=== PATIENT | male | born 1940 | race Caucasian/White ===

== ENCOUNTER 2023-07-11 12:58 | Inpatient (IN) | payer MEDICARE, SELFPAY ==
[2023-07-11] VITALS (56 sets, daily range): BP systolic 104–148; BP diastolic 62–92; PULSE 62–155; RESP 9–44; TEMP 36.3; O2SAT 85–100; BMI 20.2
--- NOTE | 2023-07-11 14:32 | CT_ITS ---
WS: [id number] CT HEAD NONCONTRAST HISTORY: Encephalopathy, altered mental status TECHNIQUE: Contiguous axial imaging performed through the brain in 2.5 mm imaging. Bone and soft tiss ue windows. Sagittal and coronal reformats reviewed. All CT scans at [facility] use at least one of these dose optimization techniques: automated exposure control; mA and/or kV adjustment per pa tient size (includes targeted exams where dose is matched to clinical indication); or iterative recon struction. DLP: 1113.38 mGy.cm COMPARISON: None available. No acute intracranial hemorrhage, midline shift or mass effect. Moderate bilateral atrophy and volume loss. Remote infarct RIGHT occipital lobe. Additional prior inf arct in the posterior LEFT frontal lobe towards the vertex. Tiny lacunar infarct in the LEFT harpal. Ad ditional tiny lacunar infarct LEFT caudate body. Ventricles: Normal size with no hydrocephalus. No inferior displacement of the cerebellar tonsils. Paranasal sinuses: As visualized are clear. Mastoid air cells: Cerumen in the external auditory canals. Calvarium and scalp: Skull is intact with no soft tissue edema or swelling. CT/CT head wo con* [id number] IMPRESSION: 1. No acute intracranial hemorrhage or edema. 2. Moderate bilateral volume loss and cerebral atrophy. 3. Remote infarcts in the RIGHT occipital and posterior LEFT frontal lobe towa rds the vertex.
--- NOTE | 2023-07-11 14:32 | XRR_ITS ---
PROCEDURE INFORMATION: Exam: XR Chest Exam date and time: 07/11/2023 2:51 PM Age: 83 years old Clinical indication: Other: Weakness TECHNIQUE: Imaging protocol: Radiologic exam of the chest. Views: 1 view. COMPARISON: No relevant prior studies available. FINDINGS: Lungs: No focal consolidation. Indeterminate opacities projecting over the mid left lung. Pleural spaces: No evidence of pneumothorax. Small right-sided pleural effusion. Possible trace-small left-sided pleural effusion. Heart/Mediastinum: Cardiomediastinal silhouette is within normal limits. Aortic valve replacement noted. Bones/joints: No evidence of acute osseous abnormality. XR/XR chest 1V portable [id number] IMPRESSION: 1. Small right-sided pleural effusion. 2. Indeterminate opacities projecting over the mid left lung. If there is ongoing clinical concern, consider correlation with CT.
--- NOTE | 2023-07-11 14:33 | ECG_ITS ---
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 Measurements Intervals [place] Rate: 89 P: 0 PA: 0 QRS: -5 QRSD: 104 T: 136 QT: 386 QTc: 472 Interpretive Statements ATRIAL FIBRILLATION PROBABLE SEPTAL MYOCARDIAL INFARCTION , OF INDETERMINATE AGE [35 ms Q WAVE IN V1/V2] No previous ECG available for comparison Electronically Signed On 07-12-2023 0:24:45 CDT by Akshat Montero M.D. [email or web address]
[2023-07-11 14:46] LABS: Basophils % 0.3 %; Eosinophils % 0.3 %; Hematocrit 42.3 % (37-53); Lymphocytes # 1.5 10^3/uL (0.8-4.8); Lymphocytes % 14.7 %; Mean Corpuscular HGB Conc 31.4 g/dL (30-55); Mean Corpuscular Hemoglobin 28.8 pg (27-33); Mean Corpuscular Volume 91.6 fl (82-101); Mean Platelet Volume 10.7 fL (7.4-10.4); Monocytes # 0.8 10^3/uL (0.2-0.9); Monocytes % 7.7 %; Neutrophils # 7.72 10^3/uL (1.8-7.7); Neutrophils % 76.6 %; Nucleated Red Blood Cells % 0 %; Platelet Count 275 10^3/cmm (157-399); Red Blood Count 4.62 10^6/uL (3.85-5.65); Red Cell Distribution Width 14.6 % (12.1-15.1); White Blood Count 10.08 10^3/uL (3.29-11.43)
--- NOTE | 2023-07-11 14:56 | ED_ITS ---
HPI - Altered Mental Status 2 General: Chief Complaint: Altered Mental Status Stated Complaint: AMS Time Seen by Provider: 07/11/23 14:18 History of Present Illness: 83-year-old man with a history of atrial fibrillation on Eliquis, coronary artery disease on Plavix, hypertension on multiple medications, diabetes on metformin who presents to the emergency room with weakness and confusion. He had been living in snf (not assisted living). Son is not sure if anybody was helping take care of him and had gone to get him to have them come stay with him. He says when he picked him up he did not seem very confused and when they stopped he was able to use his walker to get around. At the time they got here he would barely transfer and has become somewhat agitated and confused. No focal motor deficits. When I ask him who his son is. He just simply states ugly . No known fevers. He had not had any vomiting. He reports no pain at this time. Review of Systems 2 Narrative: Constitutional symptoms: Negative except as documented in HPI. Skin symptoms: Negative except as documented in HPI. Eye symptoms: Negative except as documented in HPI. ENMT symptoms: Negative except as documented in HPI. Respiratory symptoms: Negative except as documented in HPI. Cardiovascular symptoms: Negative except as documented in HPI. Gastrointestinal symptoms: Negative except as documented in HPI. Genitourinary symptoms: Negative except as documented in HPI. Musculoskeletal symptoms: Negative except as documented in HPI. Neurologic symptoms: Negative except as documented in HPI. Psychiatric symptoms: Negative except as documented in HPI. Endocrine symptoms: Negative except as documented in HPI. Physical Exam 2 Narrative: General: Alert, no acute distress. Skin: Warm, dry. Head: Normocephalic, atraumatic. Neck: Supple, trachea midline. Eye: Extraocular movements are intact. Ears, nose, mouth and throat: mucosa moist. Cardiovascular: Regular, Normal peripheral perfusion. Respiratory: Lungs are clear to auscultation, respirations are non-labored, breath sounds are equal, Symmetrical chest wall expansion. Gastrointestinal: Soft, Nontender, Non distended, Normal bowel sounds. Musculoskeletal: Normal ROM, no deformity. Neurological: Alert but not oriented, No focal neurological deficit observed. Psychiatric: Patient seems confused/demented. Course 2 Vital Signs: Vital signs: Vital Signs Temperature 97.4 F L 07/11/23 12:59 Pulse Rate 92 07/11/23 19:00 Respiratory Rate 17 07/11/23 19:00 Blood Pressure 104/85 07/11/23 19:00 Pulse Oximetry 92 07/11/23 19:00 Oxygen Delivery Me thod Room Air 07/11/23 16:40 MDM - Altered Mental Status Medical Decision Making Medical decision making: Differential diagnosis including but not limited to and based on the above HPI, review of systems and physical exam: In this patient with altered mental status: Stroke. Hypoglycemia. Metabolic encephalopathy. Infections such as pneumonia, urinary tract infection, Covid-19, Influenza. Electrolyte abnormalities such as hypernatremia. Renal failure / uremia. Hepatic encephalopathy. Hypoxemia. Hypercapnic respiratory failure. Psychosis. Drug or alcohol intoxication. Medication overdose. Orders placed to evaluate differential diagnosis based on the above differential, HPI and physical exam Lab Review: Laboratory results were reviewed and interpreted by myself the emergency room physician. White count is 10. Hemoglobin is 13. He has renal insufficiency with a BUN of 45 and a creatinine of 1.9. I do not have any comparisons. Patient has a significant urinary tract infection. Troponin is 365 and repeat is 358. This may just be due to his renal failure. Potassium is borderline high at 5.2. Lactic acid is only 1.6. EKG: Time 1459 rate 89. Atrial fibrillation with controlled rate. No ST-T changes, no ectopy, This was reviewed and interpreted by myself the ER physician at 1500 Repeat EKG: Time 1628 rate 76. Atrial fibrillation with controlled rate, No ST- T changes, no ectopy, This was reviewed and interpreted by myself the ER physician at 1631. No changes from previous Repeat EKG: Time 9 rate 144 atrial fibrillation with rapid ventricular response, No ST-T changes, no ectopy, This was reviewed and interpreted by myself the ER physician at 2029. Patient has gone from A-fib with controlled rate A-fib with RVR. Chest x-ray: No acute process. No infiltrate. No pneumothorax. No cardiomegaly. This was reviewed and interpreted by myself the ER physician. CT head: No acute intracranial process. no intracranial hemorrhage, no evidence of infarct. no evidence of acute fracture.This was reviewed and interpreted by myself the ER physician. Prolonged emergency room stay: Patient has refused to give urine. Refused catheter. Urine was not posted till around 7 hours into the patient's stay. At that point decided that he likely was septic so second liter of fluid was given. Linezolid and meropenem were given. Had some concern initially about him having some heart failure side held off on a second liter of fluid. Also held on antibiotics without a source of infection. Particularly given that his lactic acid was only 1.6. Also a CT of the abdomen pelvis was requested to rule out obstructive uropathy which is also delayed admission somewhat. I reviewed the patient's medical record. I reviewed patient's medications on the son's phone. No records from here. Attempting to obtain records from whence he came CT of the chest abdomen pelvis: Chest shows mild interstitial pulmonary edema and bilateral pleural effusions. Pleural thickening. Atelectasis. No acute abnormalities in the abdomen particularly no renal stones or obstructive uropathy. Reexamination: Patient has become tachycardic after CT scan. He is A-fib with RVR. This was discussed with Dr. George. Consultation: I spoke with Dr. George. She recommended a CT of the abdomen pelvis to rule out obstructive uropathy. She agreed with broad-spectrum antibiotics. I have been giving fluids because I am quite concerned for sepsis, however he does have a history of heart issues and his proBNP is 14,000 today. However he appears dry on exam. 2 L of fluid being given Assessment and plan: Metabolic encephalopathy Urinary tract infection Sepsis Pleural effusions Renal failure Atrial fibrillation with rapid ventricular response -2L normal saline bolus. Fluid volumes based on ideal body weight. This was given over couple hours given that I am quite concerned for heart failure with this patient and his lactate was only 1.6. However given that he some tachycardia. Renal failure. Encephalopathy. Multiorgan failure I am treating this as presumed sepsis. -Broad-spectrum antibiotics were administered. Zyvox and cefepime -Sepsis quality measures. -Lactic acid with a reflex was ordered. -Blood cultures were ordered. -I discussed the patient with the hospitalist on-call who is admitting the patient. - Discussed findings and plan with patient. Answered any questions. - All laboratory values were reviewed and interpreted personally by myself, the ER physician - All imaging was reviewed and interpreted personally by myself, the ER physician. - Evaluation and treatment of this problem were appropriate in the emergency setting -I spent a total of >35 minutes of critical care time managing the patient, independent of any other practitioner. -The time involved in the performance of separately reportable procedures was not counted towards critical care time. Lab Data 07/11/23 14:32 07/11/23 14:32 Radiology Impressions Chest X-Ray 07/11/23 14:32 IMPRESSION: 1. Small right-sided pleural effusion. 2. Indeterminate opacities projecting over the mid left lung. If there is ongoing clinical concern, consider correlation with CT. Head CT 07/11/23 14:32 IMPRESSION: 1. No acute intracranial hemorrhage or edema. 2. Moderate bilateral volume loss and cerebral atrophy. 3. 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 Chest/Abdomen/Pelvis CT 07/11/23 19:50 IMPRESSION: 1. Mild interstitial pulmonary edema with bilateral pleural effusions. Consider correlation with pleural fluid analysis on the right to exclude infection/empyema as clinically warranted. 2. Pleural thickening and calcifications compatible with asbestos related lung disease. 3. Right basilar rounded atelectasis. Consider follow-up CT of the chest in 4-6 weeks to assess for resolution. IMPRESSION: 1. No evidence of acute abnormality in the abdomen or pelvis within limitations of a noncontrast exam. 2. Right renal parenchymal atrophy. No hydronephrosis of either kidney. Laboratory Results WBC 10.08 10^3/uL (3.29-11.43) 07/11/23 14:32 RBC 4.62 10^6/uL (3.85-5.65) 07/11/23 14:32 Hgb 13.30 g/dL (11.27-16.99) 07/11/23 14:32 Hct 42.3 % (37-53) 07/11/23 14:32 MCV 91.6 fl (82-101) 07/11/23 14:32 MCH 28.8 pg (27-33) 07/11/23 14:32 MCHC 31.4 g/dL (30-55) 07/11/23 14:32 RDW 14.6 % (12.1-15.1) 07/11/23 14:32 Plt Count 275 10^3/cmm (157-399) 07/11/23 14:32 MPV 10.7 fL (7.4-10.4) H 07/11/23 14:32 Neut % (Auto) 76.6 % 07/11/23 14:32 Lymph % (Auto) 14.7 % 07/11/23 14:32 [place] % (Auto) 7.7 % 07/11/23 14:32 Eos % (Auto) 0.3 % 07/11/23 14:32 Baso % (Auto) 0.3 % 07/11/23 14:32 Neut # (Auto) 7.72 10^3/uL (1.8-7.7) H 07/11/23 14:32 Lymph # (Auto) 1.5 10^3/uL (0.8-4.8) 07/11/23 14:32 [place] # (Auto) 0.8 10^3/uL (0.2-0.9) 07/11/23 14:32 Eos # (Auto) 0.0 10^3/uL (0.0-0.8) 07/11/23 14:32 Baso # (Auto) 0.0 10^3/uL (0.0-0.1) 07/11/23 14:32 Nucleated RBC % (auto) 0 % 07/11/23 14:32 Nucleated RBCs # 0.0 /100WBC 07/11/23 14:32 Sodium 142 mmol/L (136-145) 07/11/23 14:32 Potassium 5.2 mmol/L (3.5-5.1) H 07/11/23 14:32 Chloride 108 mmol/L (98-107) H 07/11/23 14:32 Carbon Dioxide 20 mmol/L (22-29) L 07/11/23 14:32 Anion Gap 19.2 (5-19) H 07/11/23 14:32 BUN 45 mg/dL (8-23) H 07/11/23 14:32 Creatinine 1.9 mg/dL (0.7-1.2) H 07/11/23 14:32 GFR Calculation Not Reportable 07/11/23 14:32 Glucose 182 mg/dL (65-115) H 07/11/23 14:32 POC Glucose 161 mg/dL (70-110) H 07/11/23 16:33 Calculated Osmolality 310 mOsm/kg (285-295) H 07/11/23 14:32 Lactic Acid 1.6 mmol/L (0.5-2.2) 07/11/23 14:32 Calcium 8.9 mg/dL (8.5-10.5) 07/11/23 14:32 Total Bilirubin 1.2 mg/dL (0.15-1.2) 07/11/23 14:32 AST 33 U/L (0-40) 07/11/23 14:32 ALT 17 U/L (0-41) 07/11/23 14:32 Alkaline Phosphatase 133 U/L (40-130) H 07/11/23 14:32 Troponin T Baseline 358 ng/L (0-15) H* 07/11/23 14:32 Troponin T 120 Minute 364.2 ng/L (0-15) H 07/11/23 16:16 Delta Troponin T 6.2 ABS# (0-10) 07/11/23 16:16 C-Reactive Protein 116.8 mg/L (0.0-4.9) H 07/11/23 14:32 NT-Pro-B Natriuret Pep 95255 pg/mL (0-450) H 07/11/23 14:32 Total Protein 6.4 g/dL (6.6-8.7) L 07/11/23 14:32 Albumin 3.5 g/dL (3.5-5.2) 07/11/23 14:32 Globulin 2.9 g/dL (1.3-4.6) 07/11/23 14:32 TSH 1.85 uIU/mL (0.27-4.20) 07/11/23 14:32 Urine Color Yellow (Yellow) 07/11/23 19:07 Urine Appearance Cloudy (CLEAR) A 07/11/23 19:07 Urine pH 6.5 (5-7) 07/11/23 19:07 Ur Specific [place] 1.015 (1.005-1.030) 07/11/23 19:07 Urine Protein 1+ (Negative) H 07/11/23 19:07 Urine Glucose (UA) Norm (Normal) 07/11/23 19:07 Urine Ketones Negative (Negative) 07/11/23 19:07 Urine Blood 2+ (Negative) H 07/11/23 19:07 Urine Nitrate Negative (Negative) 07/11/23 19:07 Urine Bilirubin 1+ (Negative) H 07/11/23 19:07 Urine Urobilinogen Norm mg/dL (Negative) 07/11/23 19:07 Ur Leukocyte Esterase 2+ (Negative) H 07/11/23 19:07 Urine RBC 5-10 /hpf (0-2) H 07/11/23 19:07 Urine WBC >100 /hpf (0-5) H 07/11/23 19:07 Ur Squamous Epith Cells None /hpf (0-5) 07/11/23 19:07 Amorphous Sediment Trace /hpf 07/11/23 19:07 Urine Bacteria 2+ /hpf (NONE) H 07/11/23 19:07 Urine Mucus None /hpf 07/11/23 19:07 Salicylates < 0.3 mg/dL (3-10) L 07/11/23 14:32 Urine Opiates Screen Negative ng/mL (Negative) 07/11/23 19:07 Acetaminophen < 5.0 ug/mL (10-30) L 07/11/23 14:32 Ur Barbiturates Screen Negative ng/mL (Negative) 07/11/23 19:07 Ur Phencyclidine Scrn Negative ng/mL (Negative) 07/11/23 19:07 Ur Amphetamines Screen Negative ng/mL (Negative) 07/11/23 19:07 U Benzodiazepines Scrn Negative ng/mL (Negative) 07/11/23 19:07 Urine Cocaine Screen Negative ng/mL (Negative) 07/11/23 19:07 U Marijuana (THC) Screen Negative ng/mL (Negative) 07/11/23 19:07 Ethyl Alcohol < 10 mg/dL (0-10) 07/11/23 14:32 All radiology interpretation(s) finalized by discharge Discharge Plan Discharge Admit Provider: Dahlia George Condition: Stable Coding Level of Care Code ED Workflow Developer for Eddie Rousseau
[2023-07-11 14:58] LABS: Lactic Sepsis W/Reflex 1.6 mmol/L (0.5-2.2)
[2023-07-11 15:06] LABS: Troponin(5th) Baseline 358 ng/L (0-15)
[2023-07-11 15:15] LABS: Alanine Aminotransferase 17 U/L (0-41); Albumin Level 3.5 g/dL (3.5-5.2); Alkaline Phosphatase 133 U/L (40-130); Blood Urea Nitrogen 45 mg/dL (8-23); C Reactive Protein 116.8 mg/L (0.0-4.9); Calcium 8.9 mg/dL (8.5-10.5); Carbon Dioxide 20 mmol/L (22-29); Chloride 108 mmol/L (98-107); Creatinine Clr Calc Pharmacy 29.2643; Globulin 2.9 g/dL (1.3-4.6); Glucose 182 mg/dL (65-115); NT Pro B Type Natriuretic Pept 14197 pg/mL (0-450); Osmolality Calculated 310 mOsm/kg (285-295); Sodium 142 mmol/L (136-145); Thyroid Stimulating Hormone 1.85 uIU/mL (0.27-4.20); Total Bilirubin 1.2 mg/dL (0.15-1.2); Total Protein 6.4 g/dL (6.6-8.7)
[2023-07-11 15:17] LABS: Acetaminophen < 5.0 ug/mL (10-30); Alcohol Level < 10 mg/dL (0-10); Anion Gap 19.2 (5-19); Aspartate Amino Transferase 33 U/L (0-40); Potassium 5.2 mmol/L (3.5-5.1); Salicylate < 0.3 mg/dL (3-10)
--- NOTE | 2023-07-11 16:33 | ECG_ITS ---
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 Measurements Intervals [place] Rate: 94 P: 0 TN: 0 QRS: -3 QRSD: 98 T: 68 QT: 380 QTc: 477 Interpretive Statements ATRIAL FIBRILLATION POSSIBLE SEPTAL MYOCARDIAL INFARCTION , OF INDETERMINATE AGE [30 ms Q WAVE IN V1/V2] Compared to ECG 07/11/2023 14:59:44 No significant changes Electronically Signed On 07-12-2023 0:34:29 CDT by Akshat Montero M.D. [id number]
[2023-07-11 16:36] LABS: Glucose Point of Care 161 mg/dL (70-110)
[2023-07-11 16:39] LABS: Troponin 5 2HR Delta 6.2 ABS# (0-10)
[2023-07-11] MEDS: sodium chloride 0.9% 1,000 ML 999 ML IV ×2 (16:40→19:56)
[2023-07-11 16:41] LABS: Troponin 5 2HR 364.2 ng/L (0-15)
[2023-07-11] MEDS: LORazepam 2 mg/mL INJ 10 mL MDV 1 MG IVP ×2 (18:54→21:06)
[2023-07-11 19:18] LABS: Specific Gravity, Urine 1.015 (1.005-1.030); Urine Appearance Cloudy (CLEAR); Urine Color Yellow (Yellow); pH Urine 6.5 (5-7)
[2023-07-11 19:19] LABS: Bilirubin Urine 1+ (Negative); Blood Urine 2+ (Negative); Glucose Urine UA Norm (Normal); Ketones Urine Negative (Negative); Leukocyte Esterase Urine 2+ (Negative); Nitrate Urine Negative (Negative); Protein Urine 1+ (Negative); Urobilinogen Urine Norm (Negative)
[2023-07-11 19:23] LABS: Add Urine Culture? Yes; Amorphous Sediment Urine TRACE /hpf; Amphetamines Screen Urine Negative (Negative); Bacteria Urine 2+ /hpf; Barbiturates Screen Urine Negative (Negative); Benzodiazepines Screen Urine Negative (Negative); Cocaine Screen Urine Negative (Negative); Opiate Screen Urine Negative (Negative); PCP Screen Urine Negative (Negative); THC Screen Urine Negative (Negative); WBC Urine >100 /hpf (0-5)
[2023-07-11] MEDS: linezolid premix 600 MG/300 ML PREMIX 300 MG IV (19:48)
--- NOTE | 2023-07-11 19:50 | CTR_ITS ---
PROCEDURE INFORMATION: Exam: CT Chest Without Contrast; Diagnostic Exam date and time: 07/11/2023 8:14 PM Age: 83 years old Clinical indication: Other: Renal failure; Additional info: Renal failure, R/O obstructive uropathy per hospitalist TECHNIQUE: Imaging protocol: Diagnostic computed tomography of the chest without contrast. Radiation optimization: All CT scans at this facility use at least one of these dose optimization techniques: automated exposure control; mA and/or kV adjustment per patient size (includes targeted exams where dose is matched to clinical indication); or iterative reconstruction. COMPARISON: CR XR chest 1V portable [id number] 07/11/2023 2:51 PM RADIATION DOSE METRICS: Total DLP (mGy-cm): 981.4 FINDINGS: Thyroid: Grossly unremarkable. Lungs: Mild interstitial pulmonary edema. There is rounded atelectasis in the right lung base. Small-moderate right-sided pleural effusion. Small left-sided pleural effusion. There are pleural calcifications compatible with asbestos related lung disease. No pneumothorax. Heart: Mild cardiomegaly. No pericardial effusion. Aortic valve replacement. Coronary arteries: There are incidental dense coronary artery calcifications. Mediastinal space: Trachea and airway are grossly patent. No evidence of mediastinal hemorrhage or hematoma. Lymph nodes: Few scattered prominent and borderline enlarged mediastinal nodes, likely reactive. Vasculature: No evidence of aneurysmal dilatation of the thoracic aorta. Evaluation for acute vascular injury or thrombosis is limited by lack of IV contrast. Bones/joints: No evidence of acute fracture or aggressive osseous lesion. Soft tissues: No evidence of fluid collection or hematoma in the superficial soft tissues. PROCEDURE INFORMATION: Exam: CT Abdomen And Pelvis Without Contrast Exam date and time: 07/11/2023 8:14 PM Age: 83 years old Clinical indication: Other: Renal failure; Additional info: Renal failure, R/O obstructive uropathy per hospitalist TECHNIQUE: Imaging protocol: Computed tomography of the abdomen and pelvis without contrast. Radiation optimization: All CT scans at this facility use at least one of these dose optimization techniques: automated exposure control; mA and/or kV adjustment per patient size (includes targeted exams where dose is matched to clinical indication); or iterative reconstruction. COMPARISON: CR XR chest 1V portable [id number] 07/11/2023 2:51 PM RADIATION DOSE METRICS: Total DLP (mGy-cm): 981.4 FINDINGS: Liver: No evidence of focal hepatic lesion within limitation of a noncontrast exam. Gallbladder and bile ducts: There is cholelithiasis. No inflammatory changes to suggest acute cholecystitis. No intrahepatic or extrahepatic biliary dilatation. Pancreas: Moderately atrophic. Otherwise grossly unremarkable. Spleen: Grossly unremarkable. Adrenal glands: Grossly unremarkable. Kidneys and ureters: There is right-sided renal parenchymal atrophy. There are simple appearing left-sided renal cysts for which dedicated imaging follow-up is not required. Otherwise no evidence of renal parenchymal abnormality. No hydronephrosis or ureteral stone. Stomach and bowel: Few scattered colonic diverticula without evidence of acute diverticulitis. No evidence of bowel obstruction or perienteric inflammatory changes. Appendix: Normal appendix. Intraperitoneal space: No evidence of free air or fluid collection. Vasculature: Moderate atherosclerosis without evidence of aneurysmal dilitation of abdominal aorta. Lymph nodes: No evidence of adenopathy. Urinary bladder: Grossly unremarkable. Reproductive: Enlarged prostate measuring 6 cm. Consider correlation with serum laboratory findings and outpatient urologic evaluation. Bones/joints: No evidence of acute fracture or aggresive osseous lesion. Soft tissues: No evidence of fluid collection or hematoma in the superficial soft tissues. CT/[place] [id number] IMPRESSION: 1. Mild interstitial pulmonary edema with bilateral pleural effusions. Consider correlation with pleural fluid analysis on the right to exclude infection/empyema as clinically warranted. 2. Pleural thickening and calcifications compatible with asbestos related lung disease. 3. Right basilar rounded atelectasis. Consider follow-up CT of the chest in 4-6 weeks to assess for resolution. IMPRESSION: 1. No evidence of acute abnormality in the abdomen or pelvis within limitations of a noncontrast exam. 2. Right renal parenchymal atrophy. No hydronephrosis of either kidney.
[2023-07-11] MEDS: cefepime 2,000 MG in sodium chloride 0.9% (plus) 50 ML 100 MG IV (19:51)
--- NOTE | 2023-07-11 20:29 | ECG_ITS ---
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 Measurements Intervals [place] Rate: 144 P: 0 CA: 0 QRS: 55 QRSD: 109 T: -44 QT: 306 QTc: 475 Interpretive Statements ATRIAL FIBRILLATION WITH RAPID VENTRICULAR RESPONSE SEPTAL MYOCARDIAL INFARCTION , PROBABLY OLD [40+ ms Q WAVE IN V1/V2] Compared to ECG 07/11/2023 16:28:08 No significant changes Electronically Signed On 07-12-2023 0:35:15 CDT by Akshat Montero M.D. [id number]
[2023-07-11 21:28] LABS: Troponin 5 6HR Delta 10.3 ng/L (0-12)
[2023-07-11 21:34] LABS: Troponin 5 6HR 368.3 ng/L (0-15)
--- NOTE | 2023-07-11 21:34 | P.HP_ITS ---
Providers/Chief Complaint 2 Admitting Physician: Dahlia George MD Chief Complaint: AMS History of Present Illness Nicanor Engle is a 83 year old male with past medical history of atrial fibrillation chronically on Eliquis, coronary artery disease status post PCI, hypertension, diabetes presented to the ER for weakness and confusion. Patient lives in long-term at [facility] and was recently brought to [place] to [facility]. They drove 10 hours and patient was placed in long-term apartment as able. Son brought him groceries and went home. 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 Apparently patient had a fall since there was no handlebar by the toilet. Maintenance personnel had gone to install the handlebar. Patient's son was called and he took his back to urgent care who then recommended he go to the ER. Son states that patient was confused last few days which was worsening. At baseline he does have some confusion secondary to his previous strokes however he has been very confused lately. Previously he was able to ambulate with a four-wheel walker but now unable to do that as well. He appears very deconditioned. He says he has not been eating the last few days. Groceries were untouched and son went back on Monday. Son unable to provide any other history at this time. He says he has not seen his dad in 5 years. Patient's primary care doctor is Kimmy Crowley in [place]. Patient has not seen her lately. Denies nausea vomiting diarrhea abdominal pain. Denies chest pain. Patient unable to provide medical history. History was obtained from the son over the phone. ER course: 104/85, straight 17, pulse 90., Temperature 97.4 saturating 92% on room air. UA abnormal. Troponin 365, 358. Potassium 5.2, lactic acid 1.6, creatinine 1.7. Do not have previous labs on patient. EKG showed A-fib rate controlled initially. CT head negative for intracranial process. CT abdomen pelvis negative for obstructive uropathy. Broad-spectrum antibiotics ordered. BNP 14,000. Do not have a previous echo on file. Patient given sepsis bolus based on ideal body weight. Medications/Allergies Home Medications Medication Instructions Recorded Confirmed Last Taken Type amlodipine 2.5 mg tablet 2.5 mg PO DAILY 07/11/23 07/11/23 07/11/23 History apixaban 5 mg tablet (Eliquis) 5 mg PO BID 07/11/23 07/11/23 07/11/23 History atorvastatin 40 mg tablet 40 mg PO DAILY 07/11/23 07/11/23 07/11/23 History clopidogrel 75 mg tablet (Plavix) 75 mg PO DAILY 07/11/23 07/11/23 07/11/23 History glipizide 10 mg tablet, extended 10 mg PO DAILY 07/11/23 07/11/23 07/11/23 History release 24 hr lisinopril 10 mg tablet 10 mg PO DAILY 07/11/23 07/11/23 07/11/23 History metoprolol succinate 25 mg 25 mg PO BID 07/11/23 07/11/23 07/11/23 History tablet,extended release 24 hr tamsulosin 0.4 mg capsule (Flomax) 0.4 mg PO BID 07/11/23 07/11/23 07/11/23 History Allergies Allergy/AdvReac Type Severity Reaction Status Date / Time No Known Allergies Allergy Verified 07/11/23 13:10 Vitals/I&O/Wt Last Vital Signs Temp 97.4 F L 07/11/23 12:59 Pulse 130 H 07/11/23 21:00 Resp 17 07/11/23 21:00 BP 116/92 07/11/23 21:00 Pulse Ox 87 L 07/11/23 21:00 O2 Del Method Room Air 07/11/23 16:40 07/11/23 07/11/23 07/11/23 06:59 14:59 22:59 Intake Total 1350.0 / 1350.0 Balance 1350.0 / 1350.0 Weight last 48 hrs Weight 65.771 kg Physical Exam 2 Narrative: General: Patient appears very confused unable to provide any history. Only states his name when asked. HEENT: Normocephalic, atraumatic, EOMI, breathing room air Cardio: Irregularly irregular, normal S1-S2, tachycardic in the 140s. Respiratory: Clear to auscultation bilaterally, very mild crackles at bases at this time. GI: Abdomen soft, nontender, nondistended, bowel sounds + Extremities: Trace to 1+ bilateral lower extremities edema present. Data 07/11/23 14:32 07/11/23 14:32 A&P Assessment and plan (1) Hypertension: (2) Atrial fibrillation with RVR: (3) UTI (urinary tract infection): (4) Coronary artery disease: (5) Stented coronary artery: (6) BPH (benign prostatic hyperplasia): (7) PARRIS (acute kidney injury): (8) Hyperkalemia: (9) Diabetes mellitus: Plan #Altered mental status #PARRIS on CKD #Dehydration #Bilateral pleural effusions #Hyperkalemia #A-fib with RVR #UTI #CAD status post PCI #Chronic congestive heart failure #Elevated troponins, possibly due to demand ischemia #Hypertension #Diabetes mellitus type 2 #Chronic anticoagulation with Eliquis ? Continue atorvastatin, Plavix, metoprolol succinate ? Blood pressure soft. Ordered IV bolus amiodarone drip. ? Check blood culture, urine culture, check procalcitonin ? Will repeat BMP ? Place Beltran catheter for accurate urine output ? Patient received 2 L normal saline bolus in ER. Will hold off on giving further fluids ? Request records from PCP versus previous hospital. [place]. ? Chest x-ray shows small right-sided pleural effusion ? CT chest abdomen pelvis shows mild residual pulmonary edema bilateral pleural effusions. Pleural thickening calcifications compatible with asbestos related lung disease. Right basilar rounded atelectasis. No evidence of acute abnormality in the abdomen and pelvis with the limitations of a noncontrast exam. Right renal parenchymal atrophy, no hydronephrosis of either kidney. ? Troponins 300 range. Delta negative. Do not have previous records on the patient. Patient's son states he is having palpitations since yesterday. Putting his hand on his chest. Will treat as NSTEMI for now. Placed on heparin drip. Hold Eliquis. ? Check echocardiogram ? EKG shows A-fib RVR. Nonischemic EKG. ? Hold lisinopril secondary to soft blood pressure. - Sliding-scale insulin moderate dose intensity -Monitor for fever PT OT DNR/DNI. DVT prophylaxis: On Eliquis. Had a discussion with the son over the phone. He states that patient's dad would not have wanted aggressive measures. He would like for DNR/DNI at this time as per his dad's wishes. Disposition: Son interested in rehab versus [facility] Attestations 2 Medical Necessity Statement*: Greater than 2 midnight stay for management of altered mental status, PARRIS on CKD Diagnoses Hypertension I10 Atrial fibrillation with RVR I48.91 UTI (urinary tract infection) N39.0 Coronary artery disease I25.10 Stented coronary artery Z95.5 BPH (benign prostatic hyperplasia) N40.0 PARRIS (acute kidney injury) N17.9 Hyperkalemia E87.5 Diabetes mellitus E11.9
[2023-07-11] MEDS: amiodarone 150 MG/100 ML PREMIX 400 MG IV (21:38)
--- NOTE | 2023-07-11 21:47 | USCV_ITS ---
Nicanor Engle Age: 83 Gender: M : 1940 Exam Date: 07/11/2023 23:00 Ordering Phys: Dahlia George MD Technologist: LE [place] [facility] [place] Indication: Patient is unresponsive in ICU-9. History of Afib, CAD, HTN, DM BP: 116 / 92 HR: 99 Rhythm: Atrial fibrillation Technical Quality: Adequate MEASUREMENTS (Male / Female) Normal Values 2D ECHO LV Diastolic Diameter PLAX 3.2 cm 4.2 - 5.9 / 3.9 - 5.3 cm IVS Diastolic Thickness 1.6 cm 0.6 - 1.0 / 0.6 - 0.9 cm IVS Systolic Thickness 1.7 cm LVPW Diastolic Thickness 0.9 cm 0.6 - 1.0 / 0.6 - 0.9 cm LVPW Systolic Thickness 1.3 cm LVOT Diameter 1.9 cm LV Ejection Fraction 2D Teich 37.4 % LV Ejection Fraction MOD 2C 36.6 % LV Ejection Fraction 2C AL 36.4 % LA Diameter 4.8 cm LA Sys Volume AL 111.1 cm cubed LA Sys Volume Index AL 61.5 cm cubed/m squared IVC Diameter 2.0 cm M-MODE LA Ao Ratio MM 1.2 AV Cusp Separation MM 1.6 cm DOPPLER AV Peak Velocity 157.0 cm/s LVOT Peak Velocity 71.0 cm/s AV Area Cont Eq vti 1.6 cm squared AV Area Cont Eq pk 1.3 cm squared MV Peak Velocity 171.0 cm/s MV Area PHT 4.0 cm squared Mitral E to A Ratio 0.0 TR Peak Velocity 280.0 cm/s TR Peak Gradient 31.4 mmHg TV Peak E Velocity 64.0 cm/s Right Atrial Pressure 10.0 mmHg Pulmonary Artery Systolic Pressu 41.4 mmHg PV Peak Velocity 144.0 cm/s FINDINGS Left Ventricle Severe hypokinesia of the mid and apical septum and the anteroseptal segments. LV ejection fraction around 40%. The patient appears to be in atrial fibrillation during the study. Segmental wall motion analysis somewhat difficult Right Ventricle Appears to be of normal size and ejection fraction Right Atrium The right atrium is normal in size. Left Atrium Moderately increased left atrial size. Mitral Valve Moderate mitral annular calcification. Mild-moderate mitral valve regurgitation. Aortic Valve No gross abnormalities noted Tricuspid Valve Mild tricuspid valve regurgitation. Pulmonic Valve No gross abnormalities noted Pericardium Normal pericardium without effusion. Aorta Normal ascending aorta dimension. IVC Normal inferior vena cava. CONCLUSIONS Severe hypokinesia of the mid and apical septum and the anteroseptal segments. LV ejection fraction around 40%. The patient appears to be in atrial fibrillation during the study. Segmental wall motion analysis somewhat difficult. Moderately increased left atrial size. Moderate mitral annular calcification. Mild-moderate mitral valve regurgitation. Mild tricuspid valve regurgitation. Mild pulmonary hypertension, estimated pulmonary artery peak systolic pressure of 41 mmHg There is no pericardial effusion. There are no intracardiac masses. No similar previous studies are available for comparison Dr Akshat Montero MD [facility] (Electronically Signed) Final Date: 12 Jul 2023 08:57 S
[2023-07-11] MEDS: piperacillin-tazobactam 3.375 GM in sodium chloride 0.9% (plus) 50 ML IV (22:30)
--- NOTE | 2023-07-11 22:38 | PC.NURSE ---
Addendum entered by Emily Nolen, RN 07/11/23 22:53: Dr. George on unit, verbal order to change lasix order from 40mg IVP to 60mg IVP. Original Note: Arrival to ICU 9: Arrived to ICU 9 @2130. Breathing is labored, RR 32, Oxymask 6L initiated- SpO2 remaining 88-89%. Dr. George notified @8- new order for 40mg IVP Lasix ONCE.
--- NOTE | 2023-07-11 22:51 | PC.NURSE ---
Skin Assessment: Excoriation noted in the groin area. Dr. George notified @2059.
[2023-07-11] MEDS: FUROsemide 10 mg/mL SDV 10mL 60 MG IVP (23:22)
[2023-07-11] MEDS: heparin drip 25,000 UNIT/500 ML PREMIX 22.7899999999999991 UNIT IV (23:31)
[2023-07-12] VITALS (52 sets, daily range): BP systolic 98–153; BP diastolic 50–99; PULSE 72–143; RESP 7–31; TEMP 35.9–36.9; O2SAT 86–98
[2023-07-12] MEDS: vancomycin 1,500 MG/300 ML PIGGYBACK 200 MG IV (00:03)
[2023-07-12 00:11] LABS: Estmated Average Glucose 151; Hemoglobin A1C 6.9 % (4.0-6.0)
[2023-07-12 00:23] LABS: Anion Gap 17.2 (5-19); Blood Urea Nitrogen 46 mg/dL (8-23); Calcium 8.3 mg/dL (8.5-10.5); Carbon Dioxide 19 mmol/L (22-29); Chloride 108 mmol/L (98-107); Creatinine Clr Calc Pharmacy 31.8191; Glucose 221 mg/dL (65-115); Osmolality Calculated 309 mOsm/kg (285-295); Potassium 4.2 mmol/L (3.5-5.1); Sodium 140 mmol/L (136-145); Thyroid Stimulating Hormone 2.33 uIU/mL (0.27-4.20)
--- NOTE | 2023-07-12 06:03 | PC.NURSE ---
Addendum entered by Kaela Cruz RN 07/12/23 21:55: Patients son contacted via telephone and updated on move to C[facility], room 112 bed 1. Original Note: AMS: Pt states, its a secret when asked orientation questions. Pt later states his name is Bill, registration notified of pt preferred name.
[2023-07-12 06:20] LABS: Basophils % 0.2 %; Eosinophils % 0.5 %; Hematocrit 35.1 % (37-53); Lymphocytes # 1.3 10^3/uL (0.8-4.8); Mean Corpuscular HGB Conc 32.2 g/dL (30-55); Mean Corpuscular Hemoglobin 29.2 pg (27-33); Mean Corpuscular Volume 90.7 fl (82-101); Monocytes # 0.6 10^3/uL (0.2-0.9); Monocytes % 6.9 %; Neutrophils # 6.15 10^3/uL (1.8-7.7); Neutrophils % 75.8 %; Nucleated Red Blood Cells % 0 %; Platelet Count 221 10^3/cmm (157-399); Red Blood Count 3.87 10^6/uL (3.85-5.65); Red Cell Distribution Width 14.7 % (12.1-15.1); White Blood Count 8.12 10^3/uL (3.29-11.43)
[2023-07-12 06:40] LABS: Alanine Aminotransferase 14 U/L (0-41); Albumin Level 2.9 g/dL (3.5-5.2); Alkaline Phosphatase 109 U/L (40-130); Anion Gap 16.2 (5-19); Aspartate Amino Transferase 21 U/L (0-40); Blood Urea Nitrogen 44 mg/dL (8-23); Calcium 8.3 mg/dL (8.5-10.5); Carbon Dioxide 20 mmol/L (22-29); Chloride 108 mmol/L (98-107); Creatinine Clr Calc Pharmacy 31.2398; Glucose 203 mg/dL (65-115); Osmolality Calculated 307 mOsm/kg (285-295); Phosphorus 3.9 mg/dL (2.5-4.5); Potassium 4.2 mmol/L (3.5-5.1); Sodium 140 mmol/L (136-145); Total Bilirubin 0.8 mg/dL (0.15-1.2); Total Protein 5.9 g/dL (6.6-8.7)
[2023-07-12 06:44] LABS: Partial Thromboplastin Time 95.2 SECONDS (23.9-36.7)
[2023-07-12 08:07] LABS: Glucose Point of Care 189 mg/dL (70-110)
[2023-07-12] MEDS: FUROsemide 10 mg/mL SDV 4mL 40 MG IVP (09:20)
[2023-07-12] MEDS: metoprolol succinate ER (24 HR) 25 mg Tablet PO ×2 (09:20→17:03)
[2023-07-12] MEDS: clopidogrel 75 mg Tablet PO (09:20)
[2023-07-12] MEDS: atorvastatin 40 mg Tablet PO (09:20)
[2023-07-12] MEDS: tamsulosin 0.4 mg Capsule 0.400000000000000022 MG PO ×2 (09:20→17:03)
[2023-07-12 13:15] LABS: Partial Thromboplastin Time 53.3 SECONDS (23.9-36.7)
--- NOTE | 2023-07-12 16:12 | P.PN_ITS ---
Subjective 2 Subjective: Overnight labs and H&P reviewed. Patient is alert, awake. Disoriented as to his whereabouts. Able to correctly state his name and date of however tangential in conversation. He reports that he has a longstanding A-fib. As far as he is aware he does not have any history of CHF history is not reliable from the patient. Records have been requested from prior PCP. He states he had an WI at the age of 19, states he has never had an angiogram or stents placed. Denies any cardiac history other than atrial fibrillation at this time. Medications: Reviewed: Yes Vitals/I&O/Wt Last Vital Signs Temp 96.6 F L 07/12/23 07:30 Pulse 82 07/12/23 10:30 Resp 22 H 07/12/23 10:30 BP 111/70 07/12/23 10:30 Pulse Ox 90 07/12/23 10:30 O2 Del Method Room Air 07/12/23 09:36 O2 Flow Rate 2 07/12/23 05:30 07/12/23 07/12/23 07/12/23 06:59 14:59 22:59 Intake Total 715.988 / 3165.988 111.6 / 111.6 Output Total 1350 / 1350 Balance -634.012 / 1815.988 111.6 / 111.6 Weight last 48 hrs Weight 77.836 kg Weight 81.374 kg Weight 65.771 kg Physical Exam 2 Narrative: General: No acute distress, AO x3 HEENT: PERRLA, pupils bilaterally equal and reactive, pallors not present Chest: Normal vesicular breath sounds, no added sounds, equal good air entry bilaterally CVS: S1-S2 regular, no murmurs, no tachycardia, no gallops, no rubs Abdomen: Soft, nontender, no organomegaly, bowel sounds present Neuro: No focal deficits, no facial deformity, AO x3, power 5/5 in all limbs Urinary Catheter Management: Beltran: Cath Placed During This Visit: yes Reason for Continuing Indwelling Catheter: Accurate Measurement of Urinary Output in Critically Ill Patients Urinary Catheter Date of Insertion: 07/11/23 Urinary Catheter Time of Insertion: 22:31 Data 07/12/23 05:56 07/12/23 05:56 A&P Assessment and plan (1) Hypertension: (2) Atrial fibrillation with RVR: (3) UTI (urinary tract infection): (4) Coronary artery disease: (5) Stented coronary artery: (6) BPH (benign prostatic hyperplasia): (7) PARRIS (acute kidney injury): (8) Hyperkalemia: (9) Diabetes mellitus: (10) CHF (congestive heart failure): Plan #Altered mental status #PARRIS on CKD #Dehydration #Bilateral pleural effusions #Hyperkalemia #A-fib with RVR #UTI #CAD status post PCI #Chronic congestive heart failure #Elevated troponins, possibly due to demand ischemia #Hypertension #Diabetes mellitus type 2 #Chronic anticoagulation with Eliquis ? Continue atorvastatin, Plavix, metoprolol succinate ? Blood pressure soft. Ordered IV bolus amiodarone drip. ? Check blood culture, urine culture, check procalcitonin ? Will repeat BMP ? Place Beltran catheter for accurate urine output ? Patient received 2 L normal saline bolus in ER. Will hold off on giving further fluids ? Request records from PCP versus previous hospital. [place]. ? Chest x-ray shows small right-sided pleural effusion ? CT chest abdomen pelvis shows mild residual pulmonary edema bilateral pleural effusions. Pleural thickening calcifications compatible with asbestos related lung disease. Right basilar rounded atelectasis. No evidence of acute abnormality in the abdomen and pelvis with the limitations of a noncontrast exam. Right renal parenchymal atrophy, no hydronephrosis of either kidney. ? Troponins 300 range. Delta negative. Do not have previous records on the patient. Patient's son states he is having palpitations since yesterday. Putting his hand on his chest. Will treat as NSTEMI for now. Placed on heparin drip. Hold Eliquis. ? Check echocardiogram ? EKG shows A-fib RVR. Nonischemic EKG. ? Hold lisinopril secondary to soft blood pressure. - Sliding-scale insulin moderate dose intensity -Monitor for fever PT OT DNR/DNI. DVT prophylaxis: On Eliquis. Had a discussion with the son over the phone. He states that patient's dad would not have wanted aggressive measures. He would like for DNR/DNI at this time as per his dad's wishes. Disposition: Son interested in rehab versus long-term placement in halfway at discharge Plan for today July 12, 2023. 83-year-old male admitted overnight with chief complaints of altered mental status, bilateral pleural effusion and elevated troponins. He was also found to be in A-fib with RVR for which she is currently continued on amiodarone infusion. Echocardiogram that was completed today shows severe hypokinesia of the mid and apical septum and anteroseptal segments. LVEF of 40%. Segmental wall motion analysis difficult because of A-fib. Mild pulmonary hypertension with PASP of 41 mmHg. No prior echocardiogram is available to compare therefore uncertain regarding the chronicity of these findings. At a minimum patient is exhibiting signs of heart failure. Suspect this to be acute versus chronic systolic CHF. He is currently undergoing diuresis with Lasix 40 mg IV every 24 hours. We will continue the same. Urine output at 1300 cc. Net positive. Came to continue IV diuretics until patient is net negative. Likely that pleural effusion may be transudative in nature as a result of the CHF. A-fib is currently controlled with amiodarone infusion. Patient is currently awake, alert, oriented x 2. Will start p.o. amiodarone 400 mg twice daily and discontinue infusion. Elevated troponin, baseline at 358, at 2 hours 364, at 6 hours 368 with delta of 6 and 10 respectively. Suspect these elevated troponins to be more likely a result of A-fib with RVR versus related to CHF exacerbation, however cannot rule out NSTEMI. Start aspirin 81 mg p.o. daily, continue atorvastatin. Continue heparin infusion for medical management at this time. Patient has baseline CKD with creatinine at 1.9. Patient's son had indicated overnight that he would not want any aggressive measures. Called patient's son to discuss the possibility of angiogram in view of NSTEMI and discuss risk versus benefit of proceeding with a contrast study in the setting of CKD. Was unable to get in touch with his son and had left a voicemail asking him to call us back. Should the family wish to proceed with an angiogram, would consult cardiology for further assessment. Patient confused, unable to consent. Until then continue medical management with heparin over the next 48 hours, aspirin, Plavix, metoprolol. Aim to resume ROBERTO inhibitors once blood pressure is stable. UA with positive leukocyte Estrace, more than 100 WBCs, continue cefepime and vancomycin for empiric coverage while awaiting urine cultures. Start insulin sliding scale for diabetes mellitus. Transfer from ICU to CSU. Attestations 2 Medical Necessity Statement*: Needs continued admission for management of NSTEMI, A-fib RVR, CHF exacerbation, need for IV diuretics and IV antibiotics for UTI. Coding Level of Care Code Acute Code for Chg Fwd High MDM includes number and complexity of problems actively addressed during encounter, amount and/or complexity of data reviewed/ordered and described risk of complication, morbidity or mortality of management as documented Diagnoses Hypertension I10 Atrial fibrillation with RVR I48.91 UTI (urinary tract infection) N39.0 Coronary artery disease I25.10 Stented coronary artery Z95.5 BPH (benign prostatic hyperplasia) N40.0 PARRIS (acute kidney injury) N17.9 Hyperkalemia E87.5 Diabetes mellitus E11.9 CHF (congestive heart failure) I50.9
[2023-07-12] MEDS: amiodarone 200 mg Tablet 400 MG PO (17:03)
[2023-07-12 17:06] LABS: Glucose Point of Care 121 mg/dL (70-110)
[2023-07-12] MEDS: cefepime 500 MG in sodium chloride 0.9% (plus) 50 ML 100 MG IV (19:38)
[2023-07-12 20:24] LABS: Partial Thromboplastin Time 54.1 SECONDS (23.9-36.7)
[2023-07-12 20:49] LABS: Glucose Point of Care 168 mg/dL (70-110)
[2023-07-12] MEDS: insulin lispro 100 unit/1 mL SUBCUT (20:50)
[2023-07-12] MEDS: heparin drip 25,000 UNIT/500 ML PREMIX 22 UNIT IV (21:22)
--- NOTE | 2023-07-12 21:47 | PC.NURSE ---
Patient moved to room 112 bed 1 report given to [facility] nurse, patient transported via hospital bed, with belongings.
[2023-07-13] VITALS (43 sets, daily range): BP systolic 94–130; BP diastolic 57–73; PULSE 28–96; RESP 3–31; TEMP 36.6–36.8; O2SAT 91–98
[2023-07-13 03:43] LABS: Basophils % 0.6 %; Eosinophils # 0.2 10^3/uL (0.0-0.8); Eosinophils % 2.4 %; Hematocrit 37.5 % (37-53); Lymphocytes # 1.4 10^3/uL (0.8-4.8); Mean Corpuscular HGB Conc 31.7 g/dL (30-55); Mean Corpuscular Hemoglobin 28.5 pg (27-33); Mean Corpuscular Volume 89.7 fl (82-101); Mean Platelet Volume 10.7 fL (7.4-10.4); Monocytes # 0.4 10^3/uL (0.2-0.9); Monocytes % 6.5 %; Neutrophils # 4.64 10^3/uL (1.8-7.7); Neutrophils % 68.8 %; Nucleated Red Blood Cells % 0 %; Platelet Count 236 10^3/cmm (157-399); Red Blood Count 4.18 10^6/uL (3.85-5.65); Red Cell Distribution Width 14.6 % (12.1-15.1); White Blood Count 6.75 10^3/uL (3.29-11.43)
[2023-07-13 03:59] LABS: Partial Thromboplastin Time 85.1 SECONDS (23.9-36.7)
[2023-07-13 04:00] LABS: Alanine Aminotransferase 15 U/L (0-41); Albumin Level 3.3 g/dL (3.5-5.2); Alkaline Phosphatase 111 U/L (40-130); Anion Gap 15.9 (5-19); Aspartate Amino Transferase 13 U/L (0-40); Blood Urea Nitrogen 41 mg/dL (8-23); Calcium 8.6 mg/dL (8.5-10.5); Carbon Dioxide 22 mmol/L (22-29); Chloride 105 mmol/L (98-107); Globulin 3.1 g/dL (1.3-4.6); Glucose 147 mg/dL (65-115); Osmolality Calculated 301 mOsm/kg (285-295); Potassium 3.9 mmol/L (3.5-5.1); Sodium 139 mmol/L (136-145); Total Bilirubin 0.7 mg/dL (0.15-1.2); Total Protein 6.4 g/dL (6.6-8.7)
[2023-07-13 04:09] LABS: Creatinine Clr Calc Pharmacy 26.9798
[2023-07-13 06:29] LABS: Glucose Point of Care 140 mg/dL (70-110)
[2023-07-13] MEDS: metoprolol succinate ER (24 HR) 25 mg Tablet PO ×2 (08:21→18:25)
[2023-07-13] MEDS: atorvastatin 40 mg Tablet PO (08:21)
[2023-07-13] MEDS: FUROsemide 10 mg/mL SDV 4mL 40 MG IVP (08:21)
[2023-07-13] MEDS: tamsulosin 0.4 mg Capsule 0.400000000000000022 MG PO ×2 (08:21→18:25)
[2023-07-13] MEDS: aspirin 81 mg EC Tablet PO (08:21)
[2023-07-13] MEDS: amiodarone 200 mg Tablet 400 MG PO ×2 (08:21→18:22)
[2023-07-13] MEDS: clopidogrel 75 mg Tablet PO (08:22)
[2023-07-13] MEDS: vancomycin 1,500 MG/300 ML PIGGYBACK 200 MG IV (11:17)
--- NOTE | 2023-07-13 15:42 | P.PN_ITS ---
Subjective 2 Subjective: Patient continues to have intermittent confusion. He is awake and alert. He is oriented to person and place but not to time. He denies any chest pain or dyspnea. He is saturating well on room air. I had a conversation with his son who wants to defer cardiac cath at this time given his elevated creatinine. Patient recently moved to [place] from [place] and his son is unable to take care of him at home. Family is agreeable to placement in SNF for short-term rehab. Medications: Reviewed: Yes Vitals/I&O/Wt Last Vital Signs Temp 98.2 F 07/13/23 07:57 Pulse 81 07/13/23 12:00 Resp 24 H 07/13/23 12:00 BP 114/61 07/13/23 15:33 Pulse Ox 97 07/13/23 12:00 O2 Del Method Room Air 07/13/23 07:57 O2 Flow Rate 2 07/12/23 05:30 07/13/23 07/13/23 07/13/23 06:59 14:59 22:59 Intake Total 147.033 / 796.766 780 / 780 Output Total 675 / 3375 Balance -527.967 / -2578.234 780 / 780 Weight last 48 hrs Weight 76.7 kg Weight 77.836 kg Weight 81.374 kg Physical Exam 2 Const: COMMON NORMALS: no acute distress and alert O RIENTATION/CONSCIOUSNESS: Yes oriented to person and Yes oriented to place; not oriented to time HENMT: COMMON NORMALS: normocephalic and atraumatic HEAD & SCALP: n ormocephalic and atraumatic Eye: COMMON NORMALS: Equal, round and reactive pupils present and EOMs intact bilaterally PUPIL: Yes Equal, round and reactive pupils present Neck/C-Spine: COMMON NORMALS: supple and no JVD Chest: COMMONS NORMALS: normal inspection of the chest Resp: COMMON NORMALS: normal respiratory effort, No use of accessory muscles and clear to auscultation bilaterally AUSCULTATION: clear to auscultation bilaterally Cardio: COMMON NORMALS: no JVD, regular rate, S1 normal heart sound present, S2 normal heart sound present, No gallops present (Cardio) and No murmurs present (Cardio) RATE: regular rate HEART SOUNDS: S1 normal heart sound present and S2 normal heart sound present GI: COMMON NORMALS: Normal to inspection, nondistended, normoactive bowel sounds present, Soft to palpation and non-tender PALPATION: Yes Soft to palpation Neuro: SENSORIUM/ORIENTATION: Yes alert, Yes oriented to person, Yes oriented to place and No oriented to time Skin: COMMON NORMALS: no rashes or lesions noted GENERAL SKIN EXAM: no rashes or lesions noted Urinary Catheter Management: Beltran: Cath Placed During This Visit: yes Reason for Continuing Indwelling Catheter: Accurate Measurement of Urinary Output in Critically Ill Patients Urinary Catheter Date of Insertion: 07/11/23 Urinary Catheter Time of Insertion: 22:31 Data 07/13/23 03:25 07/13/23 03:25 Micro: Microbiology 07/11/23 19:07 Urine Culture - Preliminary Urine,Clean Catch A&P Assessment and plan (1) Hypertension: (2) Atrial fibrillation with RVR: Chronic atrial fibrillation He was in RVR on admission and was started on amiodarone infusion. Has been transitioned to p.o. amiodarone. (3) UTI (urinary tract infection): (4) Coronary artery disease: (5) Stented coronary artery: (6) BPH (benign prostatic hyperplasia): (7) PARRIS (acute kidney injury): (8) Hyperkalemia: (9) Diabetes mellitus: (10) CHF (congestive heart failure): Plan #Altered mental status ?Awake and alert oriented to person and place ? Has intermittent confusion # Elevated creatinine likely CKD ? Baseline creatinine unknown ? Creatinine was 1.9 on admission; 2.2 mg/dL today ? Continue to monitor renal function #Acute HFrEF ? TTE done on 07/11/2023 showed severe hypokinesis of the mid and apical segment and anterior septal segments. LVEF around 40%. Patient in A-fib during the study making segmental wall motion analysis somewhat difficult. ? Net negative -1.9 L yesterday; will switch to Lasix 40 mg daily tomorrow ? Patient has history of IL and suspect component of ischemic cardiomyopathy ? However he is at high risk of contrast-induced nephropathy given his elevated creatinine ? Family wants to defer cardiac cath at this time and will consider it at a later date ? Telemetry monitoring ? Strict I's and O's and daily weights ? Monitor renal function closely #Bilateral pleural effusions ? CT chest on 07/11/2023 showed small to moderate right pleural effusion and small left-sided pleural effusion ? Patient currently on room air Elevated troponin, likely demand ischemia ? He has CAD and troponin elevation in the setting of rapid A-fib and decompensated CHF ? Discontinued heparin infusion ? Continue aspirin and Plavix; also on atorvastatin #Hyperkalemia, resolved ? Serum potassium is 5.2 mmol/L on admission but has normalized # Chronic A-fib ? He was in RVR on admission but now rate controlled ? He was on amiodarone infusion but now on oral amiodarone ? Will restart his apixaban ? Continue metoprolol 25 mg twice daily #UTI ? Discontinued vancomycin; continue cefepime ? Follow-up urine culture #Hypertension ?Blood pressure stable; continue to monitor #Diabetes mellitus type 2 ?Sliding scale lispro DNR/DNI. DVT prophylaxis: On Eliquis. Had a discussion with the son over the phone. He states that patient's dad would not have wanted aggressive measures. He would like for DNR/DNI at this time as per his dad's wishes. Disposition: Son interested in rehab versus long-term placement in [place] [facility] Attestations 2 Medical Necessity Statement*: Patient needs continued hospitalization until authorized for SNF. Transitioning to oral Lasix tomorrow and discontinuing heparin drip. Family wants to defer left heart cath for now. Coding Level of Care Code 94050 Diagnoses Hypertension I10 Atrial fibrillation with RVR I48.91 UTI (urinary tract infection) N39.0 Coronary artery disease I25.10 Stented coronary artery Z95.5 BPH (benign prostatic hyperplasia) N40.0 PARRIS (acute kidney injury) N17.9 Hyperkalemia E87.5 Diabetes mellitus E11.9 CHF (congestive heart failure) I50.9
[2023-07-13 16:48] LABS: Partial Thromboplastin Time 64.8 SECONDS (23.9-36.7)
[2023-07-13 17:25] LABS: Glucose Point of Care 173 mg/dL (70-110)
[2023-07-13] MEDS: insulin lispro 100 unit/1 mL SUBCUT ×2 (18:25→20:45)
[2023-07-13] MEDS: cefepime 500 MG in sodium chloride 0.9% (plus) 50 ML 100 MG IV (20:20)
[2023-07-13 20:32] LABS: Glucose Point of Care 208 mg/dL (70-110)
[2023-07-13] MEDS: apixaban 5 mg Tablet 2.5 MG PO (20:45)
[2023-07-14] VITALS (8 sets, daily range): BP systolic 128–150; BP diastolic 37–103; PULSE 66–77; RESP 12–22; TEMP 36.3–37.2; O2SAT 94–98
[2023-07-14 05:40] LABS: Albumin Level 3.2 g/dL (3.5-5.2); Anion Gap 15.2 (5-19); Blood Urea Nitrogen 43 mg/dL (8-23); Calcium 8.6 mg/dL (8.5-10.5); Carbon Dioxide 23 mmol/L (22-29); Chloride 105 mmol/L (98-107); Glucose 153 mg/dL (65-115); Phosphorus 4.2 mg/dL (2.5-4.5); Potassium 4.2 mmol/L (3.5-5.1); Sodium 139 mmol/L (136-145)
[2023-07-14 05:41] LABS: Creatinine Clr Calc Pharmacy 23.5138
[2023-07-14 06:12] LABS: Glucose Point of Care 135 mg/dL (70-110)
[2023-07-14] MEDS: tamsulosin 0.4 mg Capsule 0.400000000000000022 MG PO ×2 (08:55→17:42)
[2023-07-14] MEDS: amiodarone 200 mg Tablet 400 MG PO ×2 (08:55→17:42)
[2023-07-14] MEDS: apixaban 5 mg Tablet 2.5 MG PO ×2 (08:55→21:07)
[2023-07-14] MEDS: atorvastatin 40 mg Tablet PO (08:55)
[2023-07-14] MEDS: aspirin 81 mg EC Tablet PO (08:55)
[2023-07-14] MEDS: clopidogrel 75 mg Tablet PO (08:55)
[2023-07-14] MEDS: metoprolol succinate ER (24 HR) 25 mg Tablet PO ×2 (08:55→17:42)
[2023-07-14 11:19] LABS: Glucose Point of Care 186 mg/dL (70-110)
[2023-07-14] MEDS: insulin lispro 100 unit/1 mL SUBCUT ×3 (11:31→21:08)
[2023-07-14 17:10] LABS: Glucose Point of Care 181 mg/dL (70-110)
--- NOTE | 2023-07-14 18:14 | P.PN_ITS ---
Subjective 2 Subjective: Patient did not have any overnight events. He was pleasant and cooperative during my exam. He denies any fever, chills, shortness of breath, chest pain, cough, abdominal pain or other symptoms at this time. He saturating well on room air. He was hypotensive in the afternoon yesterday but his blood pressure has improved. Medications: Reviewed: Yes Vitals/I&O/Wt Last Vital Signs Temp 98.2 F 07/14/23 16:00 Pulse 67 07/14/23 16:00 Resp 12 07/14/23 16:00 BP 129/37 07/14/23 16:00 Pulse Ox 98 07/14/23 12:00 O2 Del Method Room Air 07/14/23 12:00 O2 Flow Rate 2 07/12/23 05:30 07/14/23 07/14/23 07/14/23 06:59 14:59 22:59 Intake Total 0 / 1559.85 Output Total 200 / 200 Balance 0 / 979.85 -200 / -200 Weight last 48 hrs Weight 76 kg Weight 76.7 kg Physical Exam 2 Const: COMMON NORMALS: no acute distress and alert HENMT: COMMON NORMALS: normocephalic HEAD & SCALP: normocephalic Eye: COMMON NORMALS: Equal, round and reactive pupils present and EOMs intact bilaterally PUPIL: Yes Equal, round and reactive pupils present Neck/C-Spine: COMMON NORMALS: supple and no JVD Chest: COMMONS NORMALS: normal inspection of the chest Resp: COMMON NORMALS: normal respiratory effort, No use of accessory muscles and clear to auscultation bilaterally AUSCULTATION: clear to auscultation bilaterally Cardio: COMMON NORMALS: no JVD, regular rate, regular rhythm, S1 normal heart sound present, S2 normal heart sound present, No gallops present (Cardio), No clicks present (Cardio) and No murmurs present (Cardio) RATE: regular rate RHYTHM: regular rhythm HEART SOUNDS: S1 normal heart sound present and S2 normal heart sound present GI: COMMON NORMALS: Normal to inspection, nondistended, normoactive bowel sounds present, Soft to palpation and non-tender PALPATION: Yes Soft to palpation Extremity: COMMON NORMALS: no clubbing, cyanosis or edema Neuro: SENSORIUM/ORIENTATION: Yes alert Psych: COMMON NORMALS: mental status grossly normal, normal affect and speech normal SPEECH: Yes normal speech Skin: COMMON NORMALS: no rashes or lesions noted and no wounds GENERAL SKIN EXAM: no rashes or lesions noted Urinary Catheter Management: Beltran: Cath Placed During This Visit: yes, but has since been removed by the nurse Reason for Continuing Indwelling Catheter: Decision to DC Catheter Urinary Catheter Date of Insertion: 07/11/23 Urinary Catheter Time of Insertion: 22:31 Date Urinary Catheter Removed: 07/14/23 Time Urinary Catheter Discontinued: 04:58 Data 07/13/23 03:25 07/14/23 03:43 Micro: Microbiology 07/11/23 19:07 Urine Culture - Final Urine,Clean Catch A&P Assessment and plan (1) Hypertension: He was actually hypotensive in the afternoon yesterday. Blood pressure has improved Continue to monitor blood pressure closely (2) Atrial fibrillation with RVR: He has chronic persistent atrial fibrillation He was in RVR on admission and was started on amiodarone infusion. Has been transitioned to p.o. amiodarone. His heart rate is controlled (3) UTI (urinary tract infection): (4) Coronary artery disease: (5) Stented coronary artery: (6) BPH (benign prostatic hyperplasia): (7) PARRIS (acute kidney injury): (8) Hyperkalemia: (9) Diabetes mellitus: (10) CHF (congestive heart failure): Plan #Altered mental status ?Awake and alert oriented to person and place ? Has intermittent confusion # CKD stage IIIb ? Baseline creatinine is 1.8 ? Creatinine was 1.9 on admission; 2.5 mg/dL today ? Holding diuretics ? Continue to monitor renal function #Acute HFrEF ? TTE done on 07/11/2023 showed severe hypokinesis of the mid and apical segment and anterior septal segments. LVEF around 40%. Patient in A-fib during the study making segmental wall motion analysis somewhat difficult. ? He continues to be net negative and was switched to oral Lasix yesterday ? However his creatinine has worsened and this has been placed on hold ? Patient has CAD with history of OR and suspect component of ischemic cardiomyopathy ? However he is at high risk of contrast-induced nephropathy given his elevated creatinine ? Family wants to defer cardiac cath at this time and will consider it at a later date ? Telemetry monitoring ? Strict I's and O's and daily weights ? Monitor renal function closely #Bilateral pleural effusions ? CT chest on 07/11/2023 showed small to moderate right pleural effusion and small left-sided pleural effusion ? Patient currently on room air Elevated troponin, likely demand ischemia ? He has CAD and troponin elevation in the setting of rapid A-fib and decompensated CHF ? Discontinued heparin infusion ? Continue aspirin and Plavix; also on atorvastatin #Hyperkalemia, resolved ? Serum potassium is 5.2 mmol/L on admission but has normalized # Chronic persistent atrial fibrillation ? He was in RVR on admission but now rate controlled ? He was on amiodarone infusion but now on oral amiodarone ? Will restart his apixaban ? Continue metoprolol 25 mg twice daily #UTI ? Urine culture did not grow anything and discontinue antibiotics #Hypertension ? He was hypotensive yesterday afternoon and holding his diuretics; continue to monitor #Diabetes mellitus type 2 ?Sliding scale lispro DNR/DNI. DVT prophylaxis: On Eliquis. Disposition: Son interested in rehab versus long-term placement in [facility] at discharge. Awaiting authorization for SNF placement. Attestations 2 Medical Necessity Statement*: Continue hospitalization pending SNF placement. Creatinine is increased today and holding his diuretics. Will need to continue to monitor his renal function. Coding Level of Care Code 72067 Diagnoses Hypertension I10 Atrial fibrillation with RVR I48.91 UTI (urinary tract infection) N39.0 Coronary artery disease I25.10 Stented coronary artery Z95.5 BPH (benign prostatic hyperplasia) N40.0 PARRIS (acute kidney injury) N17.9 Hyperkalemia E87.5 Diabetes mellitus E11.9 CHF (congestive heart failure) I50.9
[2023-07-14 20:40] LABS: Glucose Point of Care 233 mg/dL (70-110)
[2023-07-15] VITALS (9 sets, daily range): BP systolic 112–135; BP diastolic 61–75; PULSE 65–80; RESP 14–25; TEMP 36.3–36.9; O2SAT 92–97
[2023-07-15 05:45] LABS: Basophils % 0.4 %; Eosinophils # 0.2 10^3/uL (0.0-0.8); Eosinophils % 3.3 %; Hematocrit 38.9 % (37-53); Lymphocytes # 1.5 10^3/uL (0.8-4.8); Lymphocytes % 21.5 %; Mean Corpuscular HGB Conc 31.6 g/dL (30-55); Mean Corpuscular Hemoglobin 28.9 pg (27-33); Mean Corpuscular Volume 91.3 fl (82-101); Mean Platelet Volume 11.5 fL (7.4-10.4); Monocytes # 0.6 10^3/uL (0.2-0.9); Monocytes % 8.9 %; Nucleated Red Blood Cells % 0 %; Platelet Count 231 10^3/cmm (157-399); Red Blood Count 4.26 10^6/uL (3.85-5.65); Red Cell Distribution Width 14.5 % (12.1-15.1); White Blood Count 6.93 10^3/uL (3.29-11.43)
[2023-07-15 06:17] LABS: Albumin Level 3.3 g/dL (3.5-5.2); Anion Gap 17.5 (5-19); Blood Urea Nitrogen 44 mg/dL (8-23); Calcium 8.3 mg/dL (8.5-10.5); Carbon Dioxide 21 mmol/L (22-29); Chloride 107 mmol/L (98-107); Creatinine Clr Calc Pharmacy 26.7202; Glucose 119 mg/dL (65-115); Magnesium 2.1 mg/dL (1.7-2.3); Phosphorus 3.7 mg/dL (2.5-4.5); Potassium 4.5 mmol/L (3.5-5.1); Sodium 141 mmol/L (136-145)
[2023-07-15 06:32] LABS: Glucose Point of Care 128 mg/dL (70-110)
[2023-07-15] MEDS: metoprolol succinate ER (24 HR) 25 mg Tablet PO ×2 (09:11→18:09)
[2023-07-15] MEDS: tamsulosin 0.4 mg Capsule 0.400000000000000022 MG PO ×2 (09:11→18:09)
[2023-07-15] MEDS: apixaban 5 mg Tablet 2.5 MG PO ×2 (09:11→21:49)
[2023-07-15] MEDS: amiodarone 200 mg Tablet 400 MG PO ×2 (09:11→18:10)
[2023-07-15] MEDS: aspirin 81 mg EC Tablet PO (09:11)
[2023-07-15] MEDS: atorvastatin 40 mg Tablet PO (09:12)
[2023-07-15] MEDS: clopidogrel 75 mg Tablet PO (09:12)
[2023-07-15 11:47] LABS: Glucose Point of Care 246 mg/dL (70-110)
[2023-07-15] MEDS: insulin lispro 100 unit/1 mL SUBCUT ×3 (12:05→21:49)
--- NOTE | 2023-07-15 12:48 | P.PN_ITS ---
Subjective 2 Subjective: He did not have any significant overnight events. Vitals reviewed. He did not remember me. He is oriented to person and place only which is stable for him. He stated he never had no problems when asked review of systems. He denies any shortness of breath, chest pain, or cough. 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 HEENT: Normocephalic and atraumatic, PERRLA and EOMI Neck: Supple, no JVD Cardio: S1, S2, regular rate and rhythm, no murmur, rub or gallop Lungs #no respiratory distress, clear to auscultation bilaterally Abdomen: Soft, nontender, nondistended, normoactive bowel sounds Extremity: No edema Skin: No rashes or lesions Urinary Catheter Management: Beltran: Cath Placed During This Visit: yes, but has since been removed by the nurse Reason for Continuing Indwelling Catheter: Decision to DC Catheter Urinary Catheter Date of Insertion: 07/11/23 Urinary Catheter Time of Insertion: 22:31 Date Urinary Catheter Removed: 07/14/23 Time Urinary Catheter Discontinued: 04:58 Data 07/15/23 04:11 07/15/23 04:11 Micro: Microbiology 07/11/23 19:07 Urine Culture - Final Urine,Clean Catch A&P Assessment and plan (1) Hypertension: He was actually hypotensive in the afternoon yesterday. Blood pressure has improved Continue to monitor blood pressure closely (2) Atrial fibrillation with RVR: He has chronic persistent atrial fibrillation He was in RVR on admission and was started on amiodarone infusion. Has been transitioned to p.o. amiodarone. His heart rate is controlled (3) UTI (urinary tract infection): (4) Coronary artery disease: (5) Stented coronary artery: (6) BPH (benign prostatic hyperplasia): (7) PARRIS (acute kidney injury): (8) Hyperkalemia: (9) Diabetes mellitus: (10) CHF (congestive heart failure): Plan #Altered mental status, resolved ?Awake and alert oriented to person and place only ? Has intermittent confusion # CKD stage IIIb ? Baseline creatinine is 1.8 ? Creatinine was 1.9 on admission and as high as 2.5 mg/dL; creatinine 2.2 mg deciliter today #Acute HFrEF, resolved ? TTE done on 07/11/2023 showed severe hypokinesis of the mid and apical segment and anterior septal segments. LVEF around 40%. Patient in A-fib during the study making segmental wall motion analysis somewhat difficult ? Patient has CAD with history of NE and suspect component of ischemic cardiomyopathy ? He has had excellent urine output with IV diuresis ? He was transition to oral Lasix but this was discontinued due to hypotension and worsening renal function ? Continue Lasix as needed as saturating well on room air and does not exhibit signs of volume overload at this time Elevated troponin, likely demand ischemia ? He has CAD and troponin elevation in the setting of rapid A-fib and decompensated CHF ? He was on a heparin drip but this has been discontinued ? Continue aspirin and Plavix; also on atorvastatin ? He is high risk of contrast-induced nephropathy given his elevated creatinine ? Family wants to defer cardiac cath at this time and will consider it at a later date ? Telemetry monitoring ? Strict I's and O's and daily weights ? Monitor renal function closely #Bilateral pleural effusions ? CT chest on 07/11/2023 showed small to moderate right pleural effusion and small left-sided pleural effusion ? Patient currently on room air #Hyperkalemia, resolved ? Serum potassium is 5.2 mmol/L on admission but has normalized # Chronic persistent atrial fibrillation ? He was in RVR on admission but now rate controlled ? He was on amiodarone infusion but now on oral amiodarone ? Will restart his apixaban ? Continue metoprolol 25 mg twice daily #UTI ? Urine culture did not grow anything and discontinue antibiotics #Hypertension ? He was hypotensive yesterday afternoon and holding his diuretics; continue to monitor #Diabetes mellitus type 2 ?Sliding scale lispro DNR/DNI. DVT prophylaxis: On Eliquis. Disposition: Son interested in rehab versus long-term placement in shelter at discharge. Awaiting authorization for SNF placement. Attestations 2 Medical Necessity Statement*: Discharge is pending authorization for SNF placement. Coding Level of Care Code Acute Code for Chg Fwd Diagnoses Hypertension I10 Atrial fibrillation with RVR I48.91 UTI (urinary tract infection) N39.0 Coronary artery disease I25.10 Stented coronary artery Z95.5 BPH (benign prostatic hyperplasia) N40.0 PARRIS (acute kidney injury) N17.9 Hyperkalemia E87.5 Diabetes mellitus E11.9 CHF (congestive heart failure) I50.9
[2023-07-15 16:43] LABS: Glucose Point of Care 268 mg/dL (70-110)
[2023-07-15 20:46] LABS: Glucose Point of Care 221 mg/dL (70-110)
[2023-07-16] VITALS (9 sets, daily range): BP systolic 111–145; BP diastolic 52–81; PULSE 67–81; RESP 15–25; TEMP 36.4–36.7; O2SAT 93–97
[2023-07-16 06:58] LABS: Glucose Point of Care 139 mg/dL (70-110)
[2023-07-16] MEDS: tamsulosin 0.4 mg Capsule 0.400000000000000022 MG PO ×2 (08:52→17:28)
[2023-07-16] MEDS: atorvastatin 40 mg Tablet PO (08:53)
[2023-07-16] MEDS: metoprolol succinate ER (24 HR) 25 mg Tablet PO ×2 (08:54→17:28)
[2023-07-16] MEDS: clopidogrel 75 mg Tablet PO (08:54)
[2023-07-16] MEDS: aspirin 81 mg EC Tablet PO (08:54)
[2023-07-16] MEDS: amiodarone 200 mg Tablet 400 MG PO ×2 (08:55→17:28)
[2023-07-16] MEDS: apixaban 5 mg Tablet 2.5 MG PO ×2 (08:55→21:10)
[2023-07-16 13:16] LABS: Glucose Point of Care 238 mg/dL (70-110)
[2023-07-16] MEDS: insulin lispro 100 unit/1 mL SUBCUT ×3 (13:23→21:10)
--- NOTE | 2023-07-16 13:54 | PC.NURSE ---
transferred to M/S room 267. Son lourdes informed of the transfer.
--- NOTE | 2023-07-16 14:22 | P.PN_ITS ---
Subjective 2 Subjective: He did not have any acute overnight events. He is doing well denies any chest pain, shortness of breath, fever or chills, abdominal pain, nausea, vomiting or other symptoms at this time. 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 HEENT: Normocephalic and atraumatic, PERRLA and EOMI Neck: Supple, no JVD Cardio: S1, S2, regular rate and rhythm, no murmur, rub or gallop Lungs #no respiratory distress, clear to auscultation bilaterally Abdomen: Soft, nontender, nondistended, normoactive bowel sounds Extremity: No edema Skin: No rashes or lesions Urinary Catheter Management: Beltran: Cath Placed During This Visit: yes, but has since been removed by the nurse Reason for Continuing Indwelling Catheter: Decision to DC Catheter Urinary Catheter Date of Insertion: 07/11/23 Urinary Catheter Time of Insertion: 22:31 Date Urinary Catheter Removed: 07/14/23 Time Urinary Catheter Discontinued: 04:58 Data 07/15/23 04:11 07/15/23 04:11 A&P Assessment and plan (1) Hypertension: He was actually hypotensive in the afternoon yesterday. Blood pressure has improved Continue to monitor blood pressure closely (2) Atrial fibrillation with RVR: He has chronic persistent atrial fibrillation He was in RVR on admission and was started on amiodarone infusion. Has been transitioned to p.o. amiodarone. His heart rate is controlled (3) UTI (urinary tract infection): (4) Coronary artery disease: (5) BPH (benign prostatic hyperplasia): (6) Hyperkalemia: (7) Diabetes mellitus: (8) CHF (congestive heart failure): (9) CKD stage 3b, GFR 30-44 ml/min: Plan #Altered mental status, resolved ?Awake and alert oriented to person and place only ? Has intermittent confusion # PARRIS on CKD stage IIIb ? Baseline creatinine is 1.8 ? Creatinine was 1.9 on admission and as high as 2.5 mg/dL ? Monitor creatinine and avoid nephrotoxic meds #Acute HFrEF, resolved ? TTE done on 07/11/2023 showed severe hypokinesis of the mid and apical segment and anterior septal segments. LVEF around 40%. Patient in A-fib during the study making segmental wall motion analysis somewhat difficult ? Patient has CAD with history of OR and suspect component of ischemic cardiomyopathy ? He has had excellent urine output with IV diuresis ? He was transitioned to oral Lasix but this was discontinued due to hypotension and worsening renal function ? Lasix as needed as he is saturating well on room air and does not exhibit signs of volume overload at this time Elevated troponin, likely demand ischemia ? He has CAD and troponin elevation in the setting of rapid A-fib and decompensated CHF ? He was on a heparin drip but this has been discontinued ? Continue aspirin and Plavix; also on atorvastatin ? He is high risk of contrast-induced nephropathy given his elevated creatinine ? Family wants to defer cardiac cath at this time and will consider it at a later date ? Telemetry monitoring ? Strict I's and O's and daily weights ? Monitor renal function closely #Bilateral pleural effusions ? CT chest on 07/11/2023 showed small to moderate right pleural effusion and small left-sided pleural effusion ? Patient currently on room air #Hyperkalemia, resolved ? Serum potassium is 5.2 mmol/L on admission but has normalized # Chronic persistent atrial fibrillation ? He was in RVR on admission but now rate controlled ? He was on amiodarone infusion but now on oral amiodarone; continue taper ? Continue apixaban and metoprolol 25 mg twice daily #UTI ? Urine culture did not grow anything and discontinue antibiotics #Hypertension ? He was hypotensive yesterday afternoon and holding his diuretics; continue to monitor #Diabetes mellitus type 2 ? A1c was 6.9% on 07/10 ? Started metformin; continue sliding scale lispro DNR/DNI. DVT prophylaxis: On Eliquis. Disposition: Son interested in rehab versus long-term placement in detention at discharge. Awaiting authorization for SNF placement. Attestations 2 Medical Necessity Statement*: Continued hospitalization pending authorization for discharge to SNF. Coding Level of Care Code 25988 Diagnoses Hypertension I10 Atrial fibrillation with RVR I48.91 UTI (urinary tract infection) N39.0 Coronary artery disease I25.10 BPH (benign prostatic hyperplasia) N40.0 Hyperkalemia E87.5 Diabetes mellitus E11.9 CHF (congestive heart failure) I50.9 CKD stage 3b, GFR 30-44 ml/min N18.32
[2023-07-16 16:37] LABS: Glucose Point of Care 230 mg/dL (70-110)
[2023-07-16] MEDS: metformin 500 mg Tablet PO (17:28)
[2023-07-16 21:08] LABS: Glucose Point of Care 163 mg/dL (70-110)
[2023-07-17] VITALS (7 sets, daily range): BP systolic 102–135; BP diastolic 53–86; PULSE 63–77; RESP 15–18; TEMP 36.4–36.8; O2SAT 93–97
[2023-07-17 05:11] LABS: Basophils % 0.5 %; Eosinophils # 0.3 10^3/uL (0.0-0.8); Eosinophils % 3.4 %; Hematocrit 33.7 % (37-53); Lymphocytes # 1.5 10^3/uL (0.8-4.8); Lymphocytes % 19.9 %; Mean Corpuscular HGB Conc 32.3 g/dL (30-55); Mean Corpuscular Hemoglobin 29.5 pg (27-33); Mean Corpuscular Volume 91.1 fl (82-101); Mean Platelet Volume 11.2 fL (7.4-10.4); Monocytes # 0.7 10^3/uL (0.2-0.9); Monocytes % 8.7 %; Neutrophils # 5.07 10^3/uL (1.8-7.7); Neutrophils % 66.5 %; Nucleated Red Blood Cells % 0 %; Platelet Count 223 10^3/cmm (157-399); Red Cell Distribution Width 14.7 % (12.1-15.1); White Blood Count 7.63 10^3/uL (3.29-11.43)
[2023-07-17 05:33] LABS: Albumin Level 3.1 g/dL (3.5-5.2); Anion Gap 13.6 (5-19); Blood Urea Nitrogen 43 mg/dL (8-23); Calcium 8.1 mg/dL (8.5-10.5); Carbon Dioxide 21 mmol/L (22-29); Chloride 106 mmol/L (98-107); Creatinine Clr Calc Pharmacy 31.7988; Glucose 169 mg/dL (65-115); Magnesium 2.1 mg/dL (1.7-2.3); Phosphorus 3.6 mg/dL (2.5-4.5); Potassium 4.6 mmol/L (3.5-5.1); Sodium 136 mmol/L (136-145)
[2023-07-17 06:30] LABS: Glucose Point of Care 152 mg/dL (70-110)
[2023-07-17] MEDS: metoprolol succinate ER (24 HR) 25 mg Tablet PO ×2 (08:34→17:34)
[2023-07-17] MEDS: atorvastatin 40 mg Tablet PO (08:34)
[2023-07-17] MEDS: aspirin 81 mg EC Tablet PO (08:34)
[2023-07-17] MEDS: metformin 500 mg Tablet PO ×2 (08:34→17:34)
[2023-07-17] MEDS: amiodarone 200 mg Tablet 400 MG PO ×2 (08:34→17:34)
[2023-07-17] MEDS: tamsulosin 0.4 mg Capsule 0.400000000000000022 MG PO ×2 (08:34→17:34)
[2023-07-17] MEDS: apixaban 5 mg Tablet 2.5 MG PO ×2 (08:34→21:53)
[2023-07-17] MEDS: clopidogrel 75 mg Tablet PO (08:34)
[2023-07-17] MEDS: insulin lispro 100 unit/1 mL SUBCUT ×3 (08:36→21:52)
[2023-07-17 11:48] LABS: Glucose Point of Care 197 mg/dL (70-110)
--- NOTE | 2023-07-17 12:04 | PC.SOCIAL ---
IMM Update Pg. 2 of IMM updated and reviewed with patient who verbalized understanding. Copy provided.
--- NOTE | 2023-07-17 17:11 | P.PN_ITS ---
Subjective 2 Subjective: Disoriented as to his whereabouts and time. States he want to go home but does not recall where he lives. Medications: Reviewed: Yes Vitals/I&O/Wt Last Vital Signs Temp 98.0 F 07/17/23 15:36 Pulse 72 07/17/23 15:36 Resp 17 07/17/23 15:36 BP 102/53 07/17/23 15:36 Pulse Ox 94 07/17/23 15:36 O2 Del Method Room Air 07/17/23 15:36 O2 Flow Rate 2 07/12/23 05:30 07/17/23 07/17/23 07/17/23 06:59 14:59 22:59 Intake Total 200 / 200 Balance 200 / 200 Weight last 48 hrs Weight 81.25 kg Weight 77 kg Physical Exam 2 Narrative: General: No acute distress, AO x3 HEENT: PERRLA, pupils bilaterally equal and reactive, pallors not present Chest: Normal vesicular breath sounds, no added sounds, equal good air entry bilaterally CVS: S1-S2 regular, no murmurs, no tachycardia, no gallops, no rubs Abdomen: Soft, nontender, no organomegaly, bowel sounds present Neuro: No focal deficits, no facial deformity, AO x3, power 5/5 in all limbs Urinary Catheter Management: Beltran: Cath Placed During This Visit: yes, but has since been removed by the nurse Reason for Continuing Indwelling Catheter: Decision to DC Catheter Urinary Catheter Date of Insertion: 07/11/23 Urinary Catheter Time of Insertion: 22:31 Date Urinary Catheter Removed: 07/14/23 Time Urinary Catheter Discontinued: 04:58 Data 07/17/23 04:19 07/17/23 04:19 A&P Assessment and plan (1) Hypertension: He was actually hypotensive in the afternoon yesterday. Blood pressure has improved Continue to monitor blood pressure closely (2) Atrial fibrillation with RVR: He has chronic persistent atrial fibrillation He was in RVR on admission and was started on amiodarone infusion. Has been transitioned to p.o. amiodarone. His heart rate is controlled (3) UTI (urinary tract infection): (4) Coronary artery disease: (5) BPH (benign prostatic hyperplasia): (6) Hyperkalemia: (7) Diabetes mellitus: (8) CHF (congestive heart failure): (9) CKD stage 3b, GFR 30-44 ml/min: Plan #Altered mental status, resolved ?Awake and alert oriented to person and place only ? Has intermittent confusion # PARRIS on CKD stage IIIb ? Baseline creatinine is 1.8 ? Creatinine was 1.9 on admission and as high as 2.5 mg/dL ? Monitor creatinine and avoid nephrotoxic meds #Acute HFrEF, resolved ? TTE done on 07/11/2023 showed severe hypokinesis of the mid and apical segment and anterior septal segments. LVEF around 40%. Patient in A-fib during the study making segmental wall motion analysis somewhat difficult ? Patient has CAD with history of [place] and suspect component of ischemic cardiomyopathy ? He has had excellent urine output with IV diuresis ? He was transitioned to oral Lasix but this was discontinued due to hypotension and worsening renal function ? Lasix as needed as he is saturating well on room air and does not exhibit signs of volume overload at this time Elevated troponin, likely demand ischemia ? He has CAD and troponin elevation in the setting of rapid A-fib and decompensated CHF ? He was on a heparin drip but this has been discontinued ? Continue aspirin and Plavix; also on atorvastatin ? He is high risk of contrast-induced nephropathy given his elevated creatinine ? Family wants to defer cardiac cath at this time and will consider it at a later date ? Telemetry monitoring ? Strict I's and O's and daily weights ? Monitor renal function closely #Bilateral pleural effusions ? CT chest on 07/11/2023 showed small to moderate right pleural effusion and small left-sided pleural effusion ? Patient currently on room air #Hyperkalemia, resolved ? Serum potassium is 5.2 mmol/L on admission but has normalized # Chronic persistent atrial fibrillation ? He was in RVR on admission but now rate controlled ? He was on amiodarone infusion but now on oral amiodarone; continue taper ? Continue apixaban and metoprolol 25 mg twice daily #UTI ? Urine culture did not grow anything and discontinue antibiotics #Hypertension ? He was hypotensive yesterday afternoon and holding his diuretics; continue to monitor #Diabetes mellitus type 2 ? A1c was 6.9% on 07/10 ? Started metformin; continue sliding scale lispro DNR/DNI. DVT prophylaxis: On Eliquis. Disposition: Son interested in rehab versus long-term placement in [place] at discharge. Awaiting authorization for SNF placement. Plan for today July 17, 2023. Creatinine stable at 1.9. Urine output has not appropriately charted. Discontinue aspirin and continue with Plavix and Eliquis to minimize bleeding risk. Continue beta-blockers, hold Lasix. Ongoing appropriate disposition planning. Attestations 2 Medical Necessity Statement*: appropriate disposition planning Coding Level of Care Code Acute Code for Chg Fwd Moderate MDM includes number and complexity of problems actively addressed during encounter, amount and/or complexity of data reviewed/ordered and described risk of complication, morbidity or mortality of management as documented Diagnoses Hypertension I10 Atrial fibrillation with RVR I48.91 UTI (urinary tract infection) N39.0 Coronary artery disease I25.10 BPH (benign prostatic hyperplasia) N40.0 Hyperkalemia E87.5 Diabetes mellitus E11.9 CHF (congestive heart failure) I50.9 CKD stage 3b, GFR 30-44 ml/min N18.32
[2023-07-17 17:21] LABS: Glucose Point of Care 135 mg/dL (70-110)
[2023-07-17 21:45] LABS: Glucose Point of Care 152 mg/dL (70-110)
[2023-07-18] VITALS (7 sets, daily range): BP systolic 114–144; BP diastolic 62–78; PULSE 62–78; RESP 16–18; TEMP 36.4–36.8; O2SAT 93–96
[2023-07-18 05:09] LABS: Alanine Aminotransferase 16 U/L (0-41); Albumin Level 3.3 g/dL (3.5-5.2); Alkaline Phosphatase 122 U/L (40-130); Anion Gap 13.9 (5-19); Aspartate Amino Transferase 11 U/L (0-40); Blood Urea Nitrogen 43 mg/dL (8-23); Calcium 8.3 mg/dL (8.5-10.5); Carbon Dioxide 23 mmol/L (22-29); Chloride 107 mmol/L (98-107); Creatinine Clr Calc Pharmacy 33.5067; Globulin 2.8 g/dL (1.3-4.6); Glucose 121 mg/dL (65-115); Osmolality Calculated 300 mOsm/kg (285-295); Potassium 4.9 mmol/L (3.5-5.1); Sodium 139 mmol/L (136-145); Total Bilirubin 0.7 mg/dL (0.15-1.2); Total Protein 6.1 g/dL (6.6-8.7)
[2023-07-18 06:38] LABS: Glucose Point of Care 133 mg/dL (70-110)
[2023-07-18] MEDS: atorvastatin 40 mg Tablet PO (08:05)
[2023-07-18] MEDS: metformin 500 mg Tablet PO ×2 (08:05→16:54)
[2023-07-18] MEDS: clopidogrel 75 mg Tablet PO (08:05)
[2023-07-18] MEDS: tamsulosin 0.4 mg Capsule 0.400000000000000022 MG PO ×2 (08:05→16:54)
[2023-07-18] MEDS: metoprolol succinate ER (24 HR) 25 mg Tablet PO ×2 (08:05→16:54)
[2023-07-18] MEDS: apixaban 5 mg Tablet 2.5 MG PO ×2 (08:06→20:50)
[2023-07-18] MEDS: amiodarone 200 mg Tablet PO (10:40)
[2023-07-18 11:17] LABS: Glucose Point of Care 166 mg/dL (70-110)
[2023-07-18] MEDS: insulin lispro 100 unit/1 mL SUBCUT ×3 (12:10→20:50)
[2023-07-18 16:41] LABS: Glucose Point of Care 154 mg/dL (70-110)
--- NOTE | 2023-07-18 16:55 | P.PN_ITS ---
Subjective 2 Subjective: No new complaints. Patient doing well overall. Awaiting disposition planning. Medications: Reviewed: Yes Vitals/I&O/Wt Last Vital Signs Temp 98.0 F 07/18/23 11:38 Pulse 64 07/18/23 11:38 Resp 18 07/18/23 11:38 BP 144/69 07/18/23 11:38 Pulse Ox 96 07/18/23 11:38 O2 Del Method Room Air 07/18/23 11:38 O2 Flow Rate 2 07/12/23 05:30 07/18/23 07/18/23 07/18/23 06:59 14:59 22:59 Intake Total 120 / 440 720 / 720 Balance 120 / 440 720 / 720 Weight last 48 hrs Weight 80.91 kg Weight 81.25 kg Physical Exam 2 Narrative: General: No acute distress, AO x3 HEENT: PERRLA, pupils bilaterally equal and reactive, pallors not present Chest: Normal vesicular breath sounds, no added sounds, equal good air entry bilaterally CVS: S1-S2 regular, no murmurs, no tachycardia, no gallops, no rubs Abdomen: Soft, nontender, no organomegaly, bowel sounds present Neuro: No focal deficits, no facial deformity, AO x3, power 5/5 in all limbs Urinary Catheter Management: Beltran: Cath Placed During This Visit: yes, but has since been removed by the nurse Reason for Continuing Indwelling Catheter: Decision to DC Catheter Urinary Catheter Date of Insertion: 07/11/23 Urinary Catheter Time of Insertion: 22:31 Date Urinary Catheter Removed: 07/14/23 Time Urinary Catheter Discontinued: 04:58 Data 07/17/23 04:19 07/18/23 03:32 A&P Assessment and plan (1) Hypertension: He was actually hypotensive in the afternoon yesterday. Blood pressure has improved Continue to monitor blood pressure closely (2) Atrial fibrillation with RVR: He has chronic persistent atrial fibrillation He was in RVR on admission and was started on amiodarone infusion. Has been transitioned to p.o. amiodarone. His heart rate is controlled (3) UTI (urinary tract infection): (4) Coronary artery disease: (5) BPH (benign prostatic hyperplasia): (6) Hyperkalemia: (7) Diabetes mellitus: (8) CHF (congestive heart failure): (9) CKD stage 3b, GFR 30-44 ml/min: Plan #Altered mental status, resolved ?Awake and alert oriented to person and place only ? Has intermittent confusion # PARRIS on CKD stage IIIb ? Baseline creatinine is 1.8 ? Creatinine was 1.9 on admission and as high as 2.5 mg/dL ? Monitor creatinine and avoid nephrotoxic meds #Acute HFrEF, resolved ? TTE done on 07/11/2023 showed severe hypokinesis of the mid and apical segment and anterior septal segments. LVEF around 40%. Patient in A-fib during the study making segmental wall motion analysis somewhat difficult ? Patient has CAD with history of NM and suspect component of ischemic cardiomyopathy ? He has had excellent urine output with IV diuresis ? He was transitioned to oral Lasix but this was discontinued due to hypotension and worsening renal function ? Lasix as needed as he is saturating well on room air and does not exhibit signs of volume overload at this time Elevated troponin, likely demand ischemia ? He has CAD and troponin elevation in the setting of rapid A-fib and decompensated CHF ? He was on a heparin drip but this has been discontinued ? Continue aspirin and Plavix; also on atorvastatin ? He is high risk of contrast-induced nephropathy given his elevated creatinine ? Family wants to defer cardiac cath at this time and will consider it at a later date ? Telemetry monitoring ? Strict I's and O's and daily weights ? Monitor renal function closely #Bilateral pleural effusions ? CT chest on 07/11/2023 showed small to moderate right pleural effusion and small left-sided pleural effusion ? Patient currently on room air #Hyperkalemia, resolved ? Serum potassium is 5.2 mmol/L on admission but has normalized # Chronic persistent atrial fibrillation ? He was in RVR on admission but now rate controlled ? He was on amiodarone infusion but now on oral amiodarone; continue taper ? Continue apixaban and metoprolol 25 mg twice daily #UTI ? Urine culture did not grow anything and discontinue antibiotics #Hypertension ? He was hypotensive yesterday afternoon and holding his diuretics; continue to monitor #Diabetes mellitus type 2 ? A1c was 6.9% on 07/10 ? Started metformin; continue sliding scale lispro DNR/DNI. DVT prophylaxis: On Eliquis. Disposition: Son interested in rehab versus long-term placement in assisted at discharge. Awaiting authorization for SNF placement. Plan for today July 17, 2023. Creatinine stable at 1.9. Urine output has not appropriately charted. Discontinue aspirin and continue with Plavix and Eliquis to minimize bleeding risk. Continue beta-blockers, hold Lasix. Ongoing appropriate disposition planning. Plan for today July 18, 2023. Creatinine remained stable. Patient doing well overall. Ready to be discharged. However we are awaiting insurance auth for pending transfer to SNF Attestations 2 Medical Necessity Statement*: pending disposition planning Coding Level of Care Code Acute Code for Chg Fwd Straight Forward/Low MDM includes number and complexity of problems actively addressed during encounter, amount and/or complexity of data reviewed/ordered and described risk of complication, morbidity or mortality of management as documented Diagnoses Hypertension I10 Atrial fibrillation with RVR I48.91 UTI (urinary tract infection) N39.0 Coronary artery disease I25.10 BPH (benign prostatic hyperplasia) N40.0 Hyperkalemia E87.5 Diabetes mellitus E11.9 CHF (congestive heart failure) I50.9 CKD stage 3b, GFR 30-44 ml/min N18.32
[2023-07-18 20:39] LABS: Glucose Point of Care 178 mg/dL (70-110)
[2023-07-19] VITALS (7 sets, daily range): BP systolic 116–130; BP diastolic 65–71; PULSE 62–80; RESP 16–18; TEMP 36.3–37; O2SAT 92–97
[2023-07-19 06:31] LABS: Glucose Point of Care 120 mg/dL (70-110)
[2023-07-19] MEDS: apixaban 5 mg Tablet 2.5 MG PO (07:56)
[2023-07-19] MEDS: metformin 500 mg Tablet PO (07:56)
[2023-07-19] MEDS: metoprolol succinate ER (24 HR) 25 mg Tablet PO (07:57)
[2023-07-19] MEDS: tamsulosin 0.4 mg Capsule 0.400000000000000022 MG PO (07:57)
[2023-07-19] MEDS: clopidogrel 75 mg Tablet PO (07:57)
[2023-07-19] MEDS: atorvastatin 40 mg Tablet PO (07:57)
[2023-07-19 11:34] LABS: Glucose Point of Care 153 mg/dL (70-110)
[2023-07-19] MEDS: insulin lispro 100 unit/1 mL SUBCUT (11:44)
--- NOTE | 2023-07-19 13:51 | PC.NURSE ---
Report called to Liz at [facility].
--- NOTE | 2023-07-19 14:27 | PC.NURSE ---
Attempted to reach pt's son Glenn to let him know that pt will be transferred to [facility] today. No answer. Message left to return call.
--- NOTE | 2023-07-19 14:49 | PC.NURSE ---
Glenn called back and is advised that pt will be transferred to [facility] [place], [place] today.
--- NOTE | 2023-07-19 15:57 | P.DS_ITS ---
Discharge Providers Date of Admission: 07/11/23 20:07 Date of Discharge: July 19, 2023 Attending Provider at Admission: Dahlia George MD Attending Provider at Discharge: Moni Morales MD Diagnoses at Discharge Discharge Diagnosis (1) Hypertension: Status: Chronic (2) Atrial fibrillation with RVR: Status: Acute (3) UTI (urinary tract infection): Status: Acute (4) Coronary artery disease: Status: Chronic (5) BPH (benign prostatic hyperplasia): Status: Chronic (6) Hyperkalemia: Status: Resolved (7) Diabetes mellitus: Status: Chronic (8) CHF (congestive heart failure): Status: Acute (9) CKD stage 3b, GFR 30-44 ml/min: Status: Chronic (10) NSTEMI (non-ST elevated myocardial infarction): Status: Acute Reason for Visit Reason for Visit: [facility] Hospital Course Hospital Course 83-year-old male admitted on 07/12/23 with chief complaints of altered mental status, bilateral pleural effusion and elevated troponins. He was also found to be in A-fib with RVR. He was initially treated with amiodarone infusion and then subsequently transition to oral amiodarone. He is currently being discharged with 200 mg p.o. twice daily. He was noted to have elevated troponins baseline at 358, at 2 hours 364, at 6 hours 368 with delta of 6 and 10 respectively. Suspect these elevated troponins to be more likely a result of A- fib with RVR versus related to CHF exacerbation, however cannot rule out NSTEMI. Per patient's son 2 to 3 days prior to current admission patient had complained of chest pain at his assisted living facility. Echocardiogram showed severe hypokinesia of the mid and apical septum and anteroseptal segments. LVEF of 40%. Segmental wall motion analysis difficult because of A-fib. Mild pulmonary hypertension with PASP of 41 mmHg. No prior echocardiogram is available to compare therefore uncertain regarding the chronicity of these findings, however a recent event could not be excluded. It was discussed with patient's son to pursue an angiogram for further diagnostics of ischemic disease, however overall given patient's prior known wishes of avoiding any interventions, CKD with baseline creatinine of 1.9, acute kidney injury during this current admission and high risk of development of ALLEN, it was eventually decided to treat patient with medical management and defer an angiogram for now. He was started on treatment initially with heparin GTT, aspirin and Plavix. This has been transitioned eventually to Eliquis and Plavix at the time of discharge. Eliquis was dose adjusted down to 2.5 mg p.o. twice daily given that patient's age is more than 80 years and creatinine is persistently above 1.5. Patient had signs of heart failure upon admission for which he received diuresis with IV Lasix. This was transitioned to oral Lasix, however he became euvolemic fairly quickly and subsequent oral doses were discontinued because of hypotension and euvolemic state.. Suspect this to be acute versus chronic systolic CHF. Additionally possible that heart failure may have been precipitated by A-fib RVR and with correction of heart rate his heart failure improved. UA with positive leukocyte Estrace, more than 100 WBCs, he empirically received cefepime and vancomycin, however this was discontinued once urine culture returned with urogenital jessy. He remained on metformin at discharge, A1c of 6.9. Patient is much improved at the time of discharge. He is transitioning to SNF. He is alert oriented x 2. Gets confused as to his whereabouts, needs occasional reorientation. This appears to be his baseline. Physical Exam Narrative: General: No acute distress, AO x2, at baseline HEENT: PERRLA, pupils bilaterally equal and reactive, pallors not present Chest: Normal vesicular breath sounds, no added sounds, equal good air entry bilaterally CVS: S1-S2 regular, no murmurs, no tachycardia, no gallops, no rubs Abdomen: Soft, nontender, no organomegaly, bowel sounds present Neuro: No focal deficits, no facial deformity, AO x3, power 5/5 in all limbs Urinary Catheter Management: Beltran: Cath Placed During This Visit: yes, but has since been removed by the nurse Reason for Continuing Indwelling Catheter: Decision to DC Catheter Urinary Catheter Date of Insertion: 07/11/23 Urinary Catheter Time of Insertion: 22:31 Date Urinary Catheter Removed: 07/14/23 Time Urinary Catheter Discontinued: 04:58 Discharge Data Studies Completed and Pending Completed Studies During Hospitalization Category [place] [id number] Stat Cat Scan 07/11/23 19:[address] head wo con* [id number] Stat Cat Scan 07/11/23 14:32 Completed XR chest 1V portable [id number] Stat Exams 07/11/23 14:32 Completed CV. echo complete* [id number] Stat Ultrasound 07/11/23 21:47 Completed Pending at discharge Category Date Time Status Sputum Culture and Gram Stain Stat Lab 07/11/23 21:48 Uncollected Radiology Impressions Chest X-Ray 07/11/23 14:32 IMPRESSION: 1. Small right-sided pleural effusion. 2. Indeterminate opacities projecting over the mid left lung. If there is ongoing clinical concern, consider correlation with CT. Head CT 07/11/23 14:32 IMPRESSION: 1. No acute intracranial hemorrhage or edema. 2. Moderate bilateral volume loss and cerebral atrophy. 3. 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 Chest/Abdomen/Pelvis CT 07/11/23 19:50 IMPRESSION: 1. Mild interstitial pulmonary edema with bilateral pleural effusions. Consider correlation with pleural fluid analysis on the right to exclude infection/empyema as clinically warranted. 2. Pleural thickening and calcifications compatible with asbestos related lung disease. 3. Right basilar rounded atelectasis. Consider follow-up CT of the chest in 4-6 weeks to assess for resolution. IMPRESSION: 1. No evidence of acute abnormality in the abdomen or pelvis within limitations of a noncontrast exam. 2. Right renal parenchymal atrophy. No hydronephrosis of either kidney. Laboratory Results WBC 7.63 10^3/uL (3.29-11.43) 07/17/23 04:19 RBC 3.70 10^6/uL (3.85-5.65) L 07/17/23 04:19 Hgb 10.90 g/dL (11.27-16.99) L 07/17/23 04:19 Hct 33.7 % (37-53) L 07/17/23 04:19 MCV 91.1 fl (82-101) 07/17/23 04:19 MCH 29.5 pg (27-33) 07/17/23 04:19 MCHC 32.3 g/dL (30-55) 07/17/23 04:19 RDW 14.7 % (12.1-15.1) 07/17/23 04:19 Plt Count 223 10^3/cmm (157-399) 07/17/23 04:19 MPV 11.2 fL (7.4-10.4) H 07/17/23 04:19 Neut % (Auto) 66.5 % 07/17/23 04:19 Lymph % (Auto) 19.9 % 07/17/23 04:19 [place] % (Auto) 8.7 % 07/17/23 04:19 Eos % (Auto) 3.4 % 07/17/23 04:19 Baso % (Auto) 0.5 % 07/17/23 04:19 Neut # (Auto) 5.07 10^3/uL (1.8-7.7) 07/17/23 04:19 Lymph # (Auto) 1.5 10^3/uL (0.8-4.8) 07/17/23 04:19 [place] # (Auto) 0.7 10^3/uL (0.2-0.9) 07/17/23 04:19 Eos # (Auto) 0.3 10^3/uL (0.0-0.8) 07/17/23 04:19 Baso # (Auto) 0.0 10^3/uL (0.0-0.1) 07/17/23 04:19 Nucleated RBC % (auto) 0 % 07/17/23 04:19 Nucleated RBCs # 0.0 /100WBC 07/17/23 04:19 APTT 64.8 SECONDS (23.9-36.7) H 07/13/23 16:03 Sodium 139 mmol/L (136-145) 07/18/23 03:32 Potassium 4.9 mmol/L (3.5-5.1) 07/18/23 03:32 Chloride 107 mmol/L (98-107) 07/18/23 03:32 Carbon Dioxide 23 mmol/L (22-29) 07/18/23 03:32 Anion Gap 13.9 (5-19) 07/18/23 03:32 BUN 43 mg/dL (8-23) H 07/18/23 03:32 Creatinine 1.8 mg/dL (0.7-1.2) H 07/18/23 03:32 GFR Calculation Not Reportable 07/18/23 03:32 Glucose 121 mg/dL (65-115) H 07/18/23 03:32 POC Glucose 153 mg/dL (70-110) H 07/19/23 11:26 Estimat Average Glucose 151 07/11/23 14:32 Hemoglobin A1c 6.9 % (4.0-6.0) H 07/11/23 14:32 Calculated Osmolality 300 mOsm/kg (285-295) H 07/18/23 03:32 Lactic Acid 1.6 mmol/L (0.5-2.2) 07/11/23 14:32 Calcium 8.3 mg/dL (8.5-10.5) L 07/18/23 03:32 Phosphorus 3.6 mg/dL (2.5-4.5) 07/17/23 04:19 Magnesium 2.1 mg/dL (1.7-2.3) 07/17/23 04:19 Total Bilirubin 0.7 mg/dL (0.15-1.2) 07/18/23 03:32 AST 11 U/L (0-40) 07/18/23 03:32 ALT 16 U/L (0-41) 07/18/23 03:32 Alkaline Phosphatase 122 U/L (40-130) 07/18/23 03:32 Troponin T Baseline 358 ng/L (0-15) H* 07/11/23 14:32 Troponin T 120 Minute 364.2 ng/L (0-15) H 07/11/23 16:16 Delta Troponin T 6.2 ABS# (0-10) 07/11/23 16:16 Troponin T Hi Sens 6Hr 368.3 ng/L (0-15) H 07/11/23 20:47 Troponin T Hi Sens 6Hr Delta 10.3 ng/L (0-12) 07/11/23 20:47 C-Reactive Protein 116.8 mg/L (0.0-4.9) H 07/11/23 14:32 NT-Pro-B Natriuret Pep 56485 pg/mL (0-450) H 07/11/23 14:32 Total Protein 6.1 g/dL (6.6-8.7) L 07/18/23 03:32 Albumin 3.3 g/dL (3.5-5.2) L 07/18/23 03:32 Globulin 2.8 g/dL (1.3-4.6) 07/18/23 03:32 Procalcitonin 0.60 ng/mL (0-0.5) H 07/11/23 20:47 TSH 2.33 uIU/mL (0.27-4.20) 07/11/23 23:42 Urine Color Yellow (Yellow) 07/11/23 19:07 Urine Appearance Cloudy (CLEAR) A 07/11/23 19:07 Urine pH 6.5 (5-7) 07/11/23 19:07 Ur Specific [place] 1.015 (1.005-1.030) 07/11/23 19:07 Urine Protein 1+ (Negative) H 07/11/23 19:07 Urine Glucose (UA) Norm (Normal) 07/11/23 19:07 Urine Ketones Negative (Negative) 07/11/23 19:07 Urine Blood 2+ (Negative) H 07/11/23 19:07 Urine Nitrate Negative (Negative) 07/11/23 19:07 Urine Bilirubin 1+ (Negative) H 07/11/23 19:07 Urine Urobilinogen Norm mg/dL (Negative) 07/11/23 19:07 Ur Leukocyte Esterase 2+ (Negative) H 07/11/23 19:07 Urine RBC 5-10 /hpf (0-2) H 07/11/23 19:07 Urine WBC >100 /hpf (0-5) H 07/11/23 19:07 Ur Squamous Epith Cells None /hpf (0-5) 07/11/23 19:07 Amorphous Sediment Trace /hpf 07/11/23 19:07 Urine Bacteria 2+ /hpf (NONE) H 07/11/23 19:07 Urine Mucus None /hpf 07/11/23 19:07 Salicylates < 0.3 mg/dL (3-10) L 07/11/23 14:32 Urine Opiates Screen Negative ng/mL (Negative) 07/11/23 19:07 Acetaminophen < 5.0 ug/mL (10-30) L 07/11/23 14:32 Ur Barbiturates Screen Negative ng/mL (Negative) 07/11/23 19:07 Ur Phencyclidine Scrn Negative ng/mL (Negative) 07/11/23 19:07 Ur Amphetamines Screen Negative ng/mL (Negative) 07/11/23 19:07 U Benzodiazepines Scrn Negative ng/mL (Negative) 07/11/23 19:07 Urine Cocaine Screen Negative ng/mL (Negative) 07/11/23 19:07 U Marijuana (THC) Screen Negative ng/mL (Negative) 07/11/23 19:07 Ethyl Alcohol < 10 mg/dL (0-10) 07/11/23 14:32 Vitals Last Vital Signs Temp 97.4 F L 07/19/23 15:16 Pulse 77 07/19/23 15:16 Resp 18 07/19/23 15:16 BP 124/70 07/19/23 15:16 Pulse Ox 96 07/19/23 15:16 O2 Del Method Room Air 07/19/23 15:16 O2 Flow Rate 2 07/12/23 05:30 Discharge Plan Discharge Patient Disposition: Xfer SNF Condition: Stable Prescriptions: New metformin 500 mg Tablet 500 mg PO BIDWM 30 Days Qty: 30 0RF Pacerone 200 mg Tablet 200 mg PO BID 30 Days Qty: 60 0RF Continued atorvastatin 40 mg Tablet 40 mg PO DAILY amlodipine 2.5 mg Tablet 2.5 mg PO DAILY Flomax 0.4 mg Capsule 0.4 mg PO BID metoprolol succinate 25 mg Tablet Extended Release 24 Hr 25 mg PO BID Plavix 75 mg Tablet 75 mg PO DAILY Changed Eliquis 5 mg Tablet 2.5 mg PO BID 30 Days Qty: 30 0RF Discontinued glipizide 10 mg Tablet Extended Release 24hr 10 mg PO DAILY lisinopril 10 mg Tablet 10 mg PO DAILY Discharge Orders: Discharge Order (Routine); Ordered 07/19/23 Ordered By: Moni Morales [facility]errals: [facility] [Other] Discharge Diet: As Directed Discharge Activity: As per PT/OT instructions Patient Instructions: Amiodarone (By mouth), Metformin (By mouth), Heart Failure (DC), Altered Mental Status (ED), CHF Stoplight, Opioid Safety Discharge Attestations Time Spent in Discharge Care*: greater than 30 min Quality Metrics Clinical Quality Measures [ Acute Myocardial Infaction { Clinical Trial Participant: No; Contraindication to aspirin: On Warfarin or Pradaxa at discharge (on Eliquis); Contraindication to statin: None; Statin prescribed; Contraindication to PCI: Refusal of treatment by patient (discussed with patient's son, patient unable to consent due to confusion );}] Coding Level of Care Code Acute Code for [facility] Fwd Diagnoses Hypertension I10 Atrial fibrillation with RVR I48.91 UTI (urinary tract infection) N39.0 Coronary artery disease I25.10 BPH (benign prostatic hyperplasia) N40.0 Hyperkalemia E87.5 Diabetes mellitus E11.9 CHF (congestive heart failure) I50.9 CKD stage 3b, GFR 30-44 ml/min N18.32 NSTEMI (non-ST elevated myocardial infarction) I21.4
[2023-07-19 17:04] LABS: Glucose Point of Care 137 mg/dL (70-110)
== END 2023-07-19 16:49 | disposition skilled nursing facility (03) | DRG 280 ==
LOC: ER 14:57 → ICU 20:07 → CSU 07-12 21:54 → MEDSURG 07-16 13:43
PROVIDERS: Student in an Organized Health Care Education/Training Program; Admitting Provider Internal Medicine; Emergency Provider Emergency Medicine; Visit Provider Student in an Organized Health Care Education/Training Program
DX: I13.0 Hypertensive heart and chronic kidney disease with heart failure and stage 1 through stage 4 chronic kidney disease, or unspecified chronic kidney disease (principal); I50.23 Acute on chronic systolic (congestive) heart failure; I21.4 Non-ST elevation (NSTEMI) myocardial infarction; N17.9 Acute kidney failure, unspecified; N39.0 Urinary tract infection, site not specified; I48.11 Longstanding persistent atrial fibrillation; N18.32 Chronic kidney disease, stage 3b; E11.22 Type 2 diabetes mellitus with diabetic chronic kidney disease; I25.10 Atherosclerotic heart disease of native coronary artery without angina pectoris; E86.0 Dehydration; R41.0 Disorientation, unspecified; N40.0 Benign prostatic hyperplasia without lower urinary tract symptoms; E87.5 Hyperkalemia; Z66 Do not resuscitate; I27.20 Pulmonary hypertension, unspecified; I95.9 Hypotension, unspecified; I25.5 Ischemic cardiomyopathy; I69.998 Other sequelae following unspecified cerebrovascular disease; Z95.5 Presence of coronary angioplasty implant and graft; Z79.01 Long term (current) use of anticoagulants; Z79.02 Long term (current) use of antithrombotics/antiplatelets; I25.2 Old myocardial infarction; Z75.1 Person awaiting admission to adequate facility elsewhere
CPT/HCPCS: 36415; 36416; 51701; 51702; 70450; 71045; 71250; 74176; 80048; 80053; 80069; 80306; 80307; 81001; 82962; 83036; 83605; 83735; 83880; 84100; 84145; 84443; 84484; 85025; 85730; 86140; 87086; 93005; 93306; 94664; 96365; 96367; 96372; 96375; 96376; 97110; 97116; 97161; 97166; 97530; 97535; 99291; A4222; E0191; J0283; J0692; J1644; J1815; J1940; J2020; J2060; J2543; J3370; J7030